=== PATIENT | male | born 1995 | race Caucasian/White ===

== ENCOUNTER 2018-08-20 23:02 | Inpatient (IN) | payer OTHER ==
[~2018-08-20] VITALS: Ht 180.3 cm; Wt 80.7 kg
--- NOTE | 2018-08-20 23:04 | NUR ---
ED Nurse Note: Pt CURTIS from [facility], pt c/o 9/10 pain in L arm s/p open fracture last week with surgical revision. Pt is A&Ox4, VSS
[2018-08-20 23:05] VITALS: BP 120/87
--- NOTE | 2018-08-20 23:07 | NUR ---
ED Nurse Note: Request for PMI from [facility] faxed for ED records from today.
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
--- NOTE | 2018-08-20 23:13 | NUR ---
ED Nurse Note: Xray at bedside
[2018-08-20 23:14] LABS: BASOPHILS % (AUTO) 0.9 % (0.0-2.0); EOSINOPHILS % (AUTO) 1.4 % (0.0-3.0); HEMATOCRIT 44.3 % (42.0-52.0); HEMOGLOBIN 15.7 G/DL (14.2-18.0); LYMPHOCYTES % (AUTO) 29.3 % (20.0-45.0); MEAN CORPUSCULAR VOLUME 90 FL (80-99); MONOCYTES % (AUTO) 7.3 % (1.0-10.0); NEUTROPHILS % (AUTO) 61.1 % (45.0-75.0); PLATELET COUNT 315 K/UL (150-450); RED BLOOD COUNT 4.91 M/UL (4.70-6.10); RED CELL DISTRIBUTION WIDTH 10.5 % (11.6-14.8); WHITE BLOOD COUNT 10.7 K/UL (4.8-10.8)
[2018-08-20] MEDS ORDERED: Morphine Sulfate 4mg/ml Inj (IV USE ONLY) IVP ONE (23:15)
[2018-08-20 23:23] LABS: ANION GAP 6 mmol/L (5-15); BLOOD UREA NITROGEN 14 mg/dL (7-18); CALCIUM 9.4 MG/DL (8.5-10.1); CARBON DIOXIDE 28 MMOL/L (21-32); CHLORIDE 105 MMOL/L (98-107); CREATININE 0.9 MG/DL (0.55-1.30); POTASSIUM 3.9 MMOL/L (3.5-5.1); SODIUM 139 MMOL/L (136-145)
[2018-08-20 23:28] LABS: INR 0.9 (0.9-1.1)
--- NOTE | 2018-08-21 | NUR ---
NURSE NOTES: Received a report from RAY Martinez from ED.
[2018-08-21] MEDS ORDERED: Morphine Sulfate 4mg/ml Inj (IV USE ONLY) IVP ONE (00:15)
--- NOTE | 2018-08-21 00:19 | NUR ---
TRANSFER TO FLOOR: Patient transferred to as ordered, per Dr Dalal. Report given to RAY Burrell. Belongings and medications given to . Family and or S/O informed of transfer.
--- NOTE | 2018-08-21 00:25 | NUR ---
NURSE NOTES: Pt newly admitted from ED via gurney. Pt is awake and alert. Breathing is even and non labored. Noted left hand swelling and gauze wrapped around left forearm serous color discharge. After Morphine 4mg IVP at ED, still noted pain 6/10. Keep left arm elevated with pillow. Left hand sensory 20% by pt's states and clumsy hand bartender noted. Checked belongings and given orientations. Provide admission kits. Leave call light within reach. Bed is locked and lowest. Will continue to monitor. Call Dr. Meraz to confirm admission orders.
[2018-08-21] MEDS ORDERED: Milk of Magnesia 30ml Ud ORAL PRN (02:00)
[2018-08-21] MEDS ORDERED: HYDROcodone/Acetamin 10/325 tab ORAL PRN (02:00)
[2018-08-21] MEDS ORDERED: Vancomycin 1.5gm Premix IVPB ONE (03:00)
[2018-08-21 04:00] VITALS: BP 121/78
[2018-08-21] MEDS: Piperacillin/Tazobactam 3.375 GM in NS 110 ML IVPB SCH ×2 (06:01→14:32)
[2018-08-21 06:40] LABS: ALANINE AMINOTRANSFERASE 58 U/L (12-78); ALBUMIN 3.5 G/DL (3.4-5.0); ALBUMIN/GLOBULIN RATIO 1.1 (1.0-2.7); ALKALINE PHOSPHATASE 68 U/L (46-116); ANION GAP 9 mmol/L (5-15); ASPARTATE AMINO TRANSFERASE 59 U/L (15-37); BLOOD UREA NITROGEN 14 mg/dL (7-18); CALCIUM 9.1 MG/DL (8.5-10.1); CARBON DIOXIDE 30 MMOL/L (21-32); CHLORIDE 100 MMOL/L (98-107); POTASSIUM 3.6 MMOL/L (3.5-5.1); SODIUM 139 MMOL/L (136-145)
[2018-08-21 06:44] LABS: BASOPHILS % (AUTO) 0.7 % (0.0-2.0); EOSINOPHILS % (AUTO) 1.6 % (0.0-3.0); HEMATOCRIT 42.8 % (42.0-52.0); HEMOGLOBIN 15.1 G/DL (14.2-18.0); LYMPHOCYTES % (AUTO) 38.8 % (20.0-45.0); MEAN CORPUSCULAR VOLUME 90 FL (80-99); MONOCYTES % (AUTO) 7.6 % (1.0-10.0); NEUTROPHILS % (AUTO) 51.4 % (45.0-75.0); PLATELET COUNT 287 K/UL (150-450); RED BLOOD COUNT 4.73 M/UL (4.70-6.10); RED CELL DISTRIBUTION WIDTH 10.8 % (11.6-14.8)
--- NOTE | 2018-08-21 07:30 | NUR ---
HAND-OFF: Report given to RAY Mayo. Pt is stable condition. Done round.
[2018-08-21] MEDS ORDERED: Milk of Magnesia 30ml Ud ORAL SCH (07:45)
[2018-08-21] MEDS ORDERED: Magnesium Citrate Liq Btl ORAL PRN ×2 (07:45→14:00)
[2018-08-21] MEDS ORDERED: oxyCODONE 5mg IR tab ORAL PRN (07:45)
[2018-08-21] MEDS ORDERED: Rate Change PCA 1 Each MISC PRN (07:45)
--- NOTE | 2018-08-21 07:45 | NUR ---
NURSE NOTES: Report received from Gho RN. Patient is awake alert and oriented x4, reporting no pain at this time, kerlix dressing around left arm is clean and dry. IV intact and running antibiotic per order. Patient updated on plan of care for the day. Side rails upx2, bed low and locked, call light in reach. Will continue to monitor.
[2018-08-21 08:00] VITALS: BP 112/66
[2018-08-21] MEDS ORDERED: oxyCONTIN 10mg tab ORAL SCH (09:00)
[2018-08-21] MEDS: Docusate 100mg cap ORAL SCH ×2 (09:49→19:12)
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
--- NOTE | 2018-08-21 10:24 | NUR ---
NURSE NOTES: Spoke with Dr. Hernandez. ordered to give mag citrate after lunch if patient has not had BM yet.
[2018-08-21] MEDS: PCA Morphine 30mg/30ml IV PRN (10:54)
[2018-08-21] MEDS: Vancomycin 1gm/D5W 275ml IVPB SCH ×4 (11:17→23:19)
--- NOTE | 2018-08-21 11:23 | Diagnostic Imaging Report ---
APPROVED REPORT CPT Code: 94781 Present Symptoms Comments: Hx of Pain and left leg injury BILATERAL: Imaging reveals a patent deep venous system bilaterally. There is no evidence of thrombus within the common femoral, superficial femoral, popliteal or tibial segments. The greater saphenous veins are within normal limits. Doppler indicates normal spontaneous flow within these segments.
[2018-08-21 12:00] VITALS: BP 110/62
--- NOTE | 2018-08-21 12:40 | Diagnostic Imaging Report ---
Indication: Pain Forearm pain Findings: 2 views of the left forearm were obtained. Patient is at prior fractures of the mid radius and ulna which have been surgically reduced with plates and screws. Alignment and position of hardware appears satisfactory. There is soft tissue swelling along the lateral part of the forearm noted with an apparent open wound. IMPRESSION: Soft tissue swelling open wound noted. Status post recent ORIF.
--- NOTE | 2018-08-21 13:05 | Consultation ---
Consult Note Assessment/Plan Patient seen/evaluated, Left both bone forearm fracture s/p ORIF and fasciotomy for compartment syndrom by Dr. Mitch Ching at [facility]. todays exam reveals continued significant swelling. recommend IV abx and dressing changes. may need wound vac. recommend plastic consult. Possible repeat I&D and would closure if swelling is down. Daily dressing changes and compression with JUAN LUIS wrap. Elevation. Will obtain xrays Gilmer Ellis MD Aug 21, 2018 13:04
--- NOTE | 2018-08-21 13:15 | NUR ---
NURSE NOTES: Dressing changed at bedside by Dr. Ellis.
--- NOTE | 2018-08-21 14:13 | NUR ---
RADIOLOGY: LT. ELBOW & HAND X-RAYS COMPLETED 1400HRS. NF
--- NOTE | 2018-08-21 14:41 | Diagnostic Imaging Report ---
Indication: left hand pain. Comparison: None Findings: 3 views of the left hand were obtained. Normal alignment is demonstrated. No acute fractures, erosions, or periosteal reaction are seen. Soft tissues are unremarkable. Impression: No acute findings.
--- NOTE | 2018-08-21 14:42 | Diagnostic Imaging Report ---
Indication: Elbow pain and swelling Findings: 3 views of the left elbow were obtained. No acute fractures, malalignment, erosions or periostitis are identified. There is generalized subcutaneous edema but no joint effusion identified. Impression: No acute fracture.
[2018-08-21] MEDS ORDERED: Magnesium Citrate Liq Btl ORAL SCH (15:00)
--- NOTE | 2018-08-21 15:11 | NUR ---
CASE MANAGEMENT: INITIAL REVIEW 23 YO M CURTIS FROM HOME CC: OPEN WOUND ON LT ARM PMHx: DENIES SI:COMPARTMENT SYNDROME T 98.6 HR 82 RR 18 B/P 120/87 SATS 100% ON RA GLU 126 IS: MORPHINE IV X1 ZOFRAN IV X1 PATIENT ADMITTED TO MED/SURG 08/20/2018 @ 1330 DCP: PATIENT TO BE DISCHARGED TO HOME ONCE MEDICALLY CLEARED. PLAN OF CARE: ORTHO, ID, PLASTICS CONSULT 08/21/2018 SI:COMPARTMENT SYNDROME T 97.9 HR 79 RR 21 B/P 110/62 SATS 95% ON RA GLU 120 AST 59 IS: ZOSYN IV Q8H PEPCID PO BID MARINOL PO Q12H REDEYE GUNNER PER PARAMETERS VANCO IV Q8H MED/SURG STATUS DCP: PATIENT TO BE DISCHARGED TO HOME ONCE MEDICALLY CLEARED. PLAN OF CARE: POSSIBLE WOUND VAC Addendum: 08/21/18 at 1526 by La Turcios CM INTERQUAL MET
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
[2018-08-21 16:00] VITALS: BP 127/90
[2018-08-21] MEDS: HYDROmorphone 1mg/ml Carpuject SUBQ PRN ×2 (17:39→23:28)
--- NOTE | 2018-08-21 17:45 | NUR ---
NURSE NOTES: Dressing changed for second time at bedside by Dr. Bernstein.
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
[2018-08-21] MEDS ORDERED: PCA shift volume MISC SCH (19:00)
--- NOTE | 2018-08-21 19:00 | NUR ---
HAND-OFF: Report given to Danna BELL. Patient is in stable condition.
[2018-08-21 20:00] VITALS: BP 117/73
[2018-08-21] MEDS ORDERED: Dronabinol 2.5mg Cap ORAL SCH (21:00)
[2018-08-21] MEDS: Cefepime HCl 1 GM in D5W 55 ML IVPB SCH (22:03)
[2018-08-21 23:36] VITALS: BP 119/74
[2018-08-22 04:00] VITALS: BP 113/73
[2018-08-22] MEDS: PCA Morphine 30mg/30ml IV PRN (04:32)
--- NOTE | 2018-08-22 06:38 | NUR ---
NURSE NOTES: spoke to Dr Hernandez, advised pt has tolerated pain since the last dilaudid was administered at 2330. Pt pain level reported at 4/10 on left arm. pt is refusing dilaudid at this time
[2018-08-22] MEDS ORDERED: Fleet's Enema 133ml RECTAL PRN (07:15)
[2018-08-22] MEDS: Vancomycin 1gm/D5W 275ml IVPB SCH ×6 (07:16→22:44)
--- NOTE | 2018-08-22 07:30 | NUR ---
NURSE NOTES: Report received from Danna RN, rounds made. Patient sitting in semi-fowlers position, in bed. No distress on RA. Pain to LFA 6/10. LFA dressing intact. Sling on. Elevated on x3 pillows. CMS to left hand intact, slight wiggle, skin warm, no NT, capillary refill <3 seconds. Scabs to left upper hip/lower back, left knee, left garza, left ankle noted, intact, will apply Silvadene as ordered. Instructed patient on Dr. Hernandez's new orders, verbalized understanding. IVF/antibiotics infusing as ordered, CAKE PUNCHER discontinued, will send syringe down to pharmacy. GF at bedside. Call light in reach, bed in lowest position, will continue to monitor.
--- NOTE | 2018-08-22 07:58 | Infectious Diseases Prog Note ---
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 Will continue to follow along with you. Discussed with RN. Subjective Allergies: Coded Allergies: No Known Allergies (Unverified , 08/20/18) Subjective Afebrile No leukocytosis Objective Vital Signs Last 24 Hour Vital Signs Date Time Temp Pulse Resp B/P (MAP) Pulse Ox O2 Delivery O2 Flow Rate FiO2 08/22/18 07:48 18 08/22/18 05:02 98.1 08/22/18 04:43 18 08/22/18 04:30 18 08/22/18 04:00 99.0 67 16 113/73 (86) 96 08/22/18 00:00 18 08/21/18 23:58 98.1 08/21/18 23:36 98.1 89 19 119/74 (89) 97 08/21/18 21:00 Room Air 08/21/18 20:00 18 08/21/18 20:00 97.9 88 18 117/73 (88) 98 08/21/18 16:00 99.0 78 21 127/90 (102) 99 08/21/18 16:00 21 08/21/18 12:54 18 08/21/18 12:24 18 08/21/18 12:00 97.9 79 21 110/62 (78) 95 08/21/18 11:54 18 08/21/18 11:39 18 08/21/18 11:24 18 08/21/18 11:09 18 08/21/18 10:54 18 08/21/18 09:00 Room Air 08/21/18 08:00 98.4 82 21 112/66 (81) 98 Height (Feet): 5 Height (Inches): 11.00 Weight (Pounds): 180 Objective General appearance: NAD Head: NCAT, MMM, EOMI Lungs: clear to auscultation bilaterally Heart: regular rate and rhythm, S1, S2 Abdomen: soft, non-tender. Bowel sounds normal. Extremities: arm has open wounds Microbiology Date/Time Source Procedure Growth Status 08/21/18 04:35 Rectum Received Laboratory Tests Test 08/22/18 05:00 Vancomycin Level Trough 11.5 ug/mL (5.0-12.0) Current Medications Medications (Trade) Dose Ordered Sig/Diane Route PRN Reason Start Time Stop Time Status Last Admin Dose Admin Acetaminophen/ Hydrocodone Bitart ([place] 10/325) 1 tab Q3H PRN ORAL PAIN 1-5 08/21/18 14:00 08/28/18 13:59 Al Hydroxide/Mg Hydroxide (Mylanta) 30 ml Q6H PRN ORAL GERD/DYSPEPSIA 08/21/18 07:45 09/20/18 07:44 Bisacodyl (Dulcolax) 10 mg ONCE RECTAL 08/22/18 07:15 08/22/18 08:30 Cefepime HCl 1 gm/ Dextrose 55 ml @ 110 mls/hr EVERY 12 HOURS IVPB 08/21/18 21:00 08/28/18 20:59 08/21/18 22:03 Diphenhydramine HCl (Benadryl) 25 mg Q6H PRN ORAL Itching 08/21/18 07:45 09/20/18 07:44 Docusate Sodium (Colace) 100 mg TWICE A DAY ORAL 08/21/18 09:00 09/20/18 08:59 08/21/18 19:12 Dronabinol (Marinol) 2.5 mg Q8H ORAL 08/22/18 13:00 09/21/18 12:59 Famotidine (Pepcid) 20 mg BID ORAL 08/21/18 09:00 09/20/18 08:59 08/21/18 19:12 Hydromorphone HCl (Dilaudid) 1 mg Q6H PRN IVP BREAKTHROUGH PAIN 6-10 08/22/18 07:15 08/29/18 07:14 Magnesium Citrate (Citrate Of Magnesia) 300 ml DAILYPRN PRN ORAL Severe constipation 08/21/18 14:00 09/20/18 13:59 Ondansetron HCl (Zofran) 4 mg Q4H PRN IVP Nausea & Vomiting 08/21/18 07:45 82/19 07:44 08/21/18 23:28 Sennosides (Senokot) 8.6 mg DAILY ORAL 08/23/18 09:00 09/22/18 08:59 Silver Sulfadiazine (Silvadene Cream 25gm) 1 applic TWICE A DAY TOPIC 08/21/18 18:00 09/20/18 17:59 08/21/18 19:12 Sodium Phosphate (Fleet's Sodium Phosl Enema) 133 ml Q12H PRN RECTAL severe constipation 08/22/18 07:15 09/21/18 07:14 Vancomycin HCl (Vanco rx to dose) 1 ea DAILY PRN MISC Per rx protocol 08/21/18 02:00 09/20/18 01:59 Vancomycin HCl 1 gm/Dextrose 275 ml @ 183.708 mls/hr Q8HR IVPB 08/21/18 11:00 08/26/18 10:59 08/22/18 07:16 Raulito Nicolas MD Aug 22, 2018 07:58
[2018-08-22 08:00] VITALS: BP 130/69
[2018-08-22] MEDS: Docusate 100mg cap ORAL SCH ×2 (08:46→18:29)
[2018-08-22] MEDS: Cefepime HCl 1 GM in D5W 55 ML IVPB SCH ×2 (08:47→21:34)
[2018-08-22] MEDS: HYDROmorphone 1mg/ml Carpuject IVP PRN ×3 (08:49→21:42)
--- NOTE | 2018-08-22 09:30 | Progress Note ---
DATE: 08/22/2018 ACUTE PAIN MANAGEMENT PHYSICIAN PROGRESS NOTE MEDICATIONS: Medication administration record reviewed. Medication include Mylanta, Dulcolax, antibiotics, Benadryl, Colace, Marinol, Pepcid, [place], Dilaudid, magnesium citrate, BRIM GREASER OPERATOR morphine, Zofran, and Silvadene cream. LABORATORY STUDIES: From August 21, 2018 shows white count 9, hematocrit 43, and platelets 290. OBJECTIVE: VITAL SIGNS: Within normal limits. Afebrile, pulse 57, respirations 18, oxygen saturation 96% on room air, and blood pressure 113/73. I spent over 60 minutes in consultation. I saw the patient at the bedside. I discussed the case with the nurse RN, Danna. The patient tolerated the Marinol without oversedation. I had started the dosing as q.12 hours. As the patient did tolerate the medication well, I will increase the Marinol to q. 8 hours [id number]. The patient continued to trial the morphine BRIM GREASER OPERATOR overnight. The patient did not believe he was receiving too much benefit. Therefore to encourage movement in and out of bed, I will discontinue the BRIM GREASER OPERATOR and Hep-Lock his IV fluids, since he is adequately drinking fluids for necessary hydration. I will continue the p.r.n. [place] 10 mg every three hours p.r.n. I also have switched the Dilaudid from the subcutaneous route to the intravenous route per the patient's preference. The patient does not appear to be anxious and the patient is in good spirits. I did encourage aggressive ambulation for DVT prophylaxis. The patient remains constipated. He did drink 300 mL bottle of magnesium citrate yesterday at 4 p.m. without results. He also failed milk of magnesia earlier. I have ordered a Dulcolax suppository followed with Fleet Enema p.r.n. I will defer these constipation issues to the attending physician, Dr. Meraz. Once the patient does have a bowel movement, I will start him on Senokot daily to help with further opioid-induced constipation issues. I have left a prescription for [place] for outpatient usage. Once the patient is discharged from the hospital, the patient remains on IV antibiotics. Dr. Gilmer Ellis, evaluated the patient. The Orthopedic consultation is appreciated. Additionally, surgeon Dr. Bernstein, evaluated the patient yesterday evening and made the following assessment plan "left forearm radius ulna open fracture, status post ORIF with subsequent compartment syndrome, status post fasciotomies. The patient with moderate swelling and muscle belly as expected, cannot do delayed primary closure at this time. Recommend application of negative pressure wound VAC to both open wounds to decrease the swelling and stimulate granulation tissue to fill in the defects, then the options would be attempted delayed primary closure versus skin grafting versus continued wound care and eventual secondary closure. I discussed the advantages and disadvantages of each treatment option. For now, we will need to arrange for wound VAC and home health nursing for wound VAC application, need to get the patient wean off of IV pain medication. Once these are done, he can be discharged home from my perspective and will follow up with me at the outpatient Wound [facility] at [facility], where the wound treatment will continue to with conclusion." Raulito Hernandez M.D. DR: LA JOB#: [id number] CC:
--- NOTE | 2018-08-22 11:00 | NUR ---
NURSE NOTES: Dr. Hernandez notified that patient had BM this AM, no suppository given, orders received, see updated orders.
[2018-08-22] MEDS: HYDROcodone/Acetamin 10/325 tab ORAL PRN ×3 (11:38→22:45)
[2018-08-22 12:00] VITALS: BP 126/69
--- NOTE | 2018-08-22 12:45 | NUR ---
NURSE NOTES: LFA dressing changed as ordered by Dr. Ellis, using clean technique. Old dressing removed. Sutures noted to left wrist. Open wounds observed, pink/red moist wound bed, light bleeding. Applied xeroform, 4x4, ABD pads, kerlix, then wrist splint, secured with JUAN LUIS wrap. Elevated on x3 pillows. CMS remains unchanged. Sling on. Will continue to monitor.
[2018-08-22] MEDS: Dronabinol 2.5mg Cap ORAL SCH ×2 (13:12→21:00)
--- NOTE | 2018-08-22 14:59 | NUR ---
CASE MANAGEMENT: REVIEW 08/22/2018 SI:COMPARTMENT SYNDROME T 98 HR 81 RR 20 B/P 130/69 SATS 97% ON RA NO LABS TODAY IS: ZOSYN IV Q8H PEPCID PO BID MARINOL PO Q12H SPOOL WORKER PER PARAMETERS VANCO IV Q8H MED/SURG STATUS DCP: PATIENT TO BE DISCHARGED TO HOME ONCE MEDICALLY CLEARED. PLAN OF CARE: PER MD, "We will need to arrange for wound VAC and home health nursing for wound VAC application."
--- NOTE | 2018-08-22 15:03 | NUR ---
DISCHARGE PLANNING: NOTE LEFT FOR [employer] REGARDING WOUND VAC AND HOME HEALTH. CM WILL F/U IN AM.
[2018-08-22 16:00] VITALS: BP 124/70
[2018-08-22] MEDS: Sennosides 8.6mg tab ORAL SCH (18:29)
--- NOTE | 2018-08-22 18:45 | NUR ---
NURSE NOTES: Followed up with Dr. Bernstein, Dr. Meraz, Renetta Guerrero PA for Dr. Ellis, Dr. Hernandez, and Dr. Nicolas, regarding wound vac placement plans for tomorrow 08/23 and that we do not have a consent order nor a NPO order in preparation for the upcoming procedure. Above MD's have verbalized that they are not performing the procedure tomorrow and do not know which MD is. Will endorse to next shift to follow up with wound RN.
--- NOTE | 2018-08-22 19:50 | NUR ---
HAND-OFF: Report given to Josy BELL. Endorsed that no wound vac placement consent yet, awaiting on MD orders. Still unsure which MD is performing the procedure.
--- NOTE | 2018-08-22 19:50 | NUR ---
NURSE NOTES: Received report from RAY Eaton. Patient alert, oriented, resting in bed. Noted dressing in left forearm intact, sling on. Able to move fingers, cap refill <3 sec. No distress noted. Call light within reach, bed in low position, locked, side rails up x2, will continue to monitor.
[2018-08-22 20:00] VITALS: BP 127/70
[2018-08-22] MEDS ORDERED: NS 275ml ONE (20:59)
[2018-08-22] MEDS ORDERED: NS 500ML ONE (20:59)
[2018-08-22] MEDS ORDERED: Tubing IV Secondary IV ONE (20:59)
[2018-08-23] VITALS: BP 125/71
--- NOTE | 2018-08-23 00:43 | NUR ---
NURSE NOTES: Patient sleeping, respirations unlabored.
[2018-08-23] MEDS: HYDROcodone/Acetamin 10/325 tab ORAL PRN ×5 (01:51→22:14)
--- NOTE | 2018-08-23 01:58 | NUR ---
NURSE NOTES: given pain med, sleeping on and off.
[2018-08-23 04:00] VITALS: BP 109/63
[2018-08-23] MEDS: HYDROmorphone 1mg/ml Carpuject IVP PRN ×3 (04:18→20:53)
--- NOTE | 2018-08-23 04:30 | NUR ---
NURSE NOTES: Left forearm dressing change done after premedicated with Dilaudid IVP. Removed gauze, noted scant blood amount on gauze. Moistened xeroform with saline to remove gently, irrigated wounds thoroughly with saline. Both open wounds (inner and outer forearm) color beefy red, moist, no purulent discharge noted, no active bleeding. Wrist wound closed, with stitches intact. Applied Xeroform to open wounds, followed by 4x4, kerlix and zulema wrap. Also reapplied wrist brace and arm sling. Elevated arm on pillows. Patient tolerated procedure very well.
[2018-08-23] MEDS: Vancomycin 1gm/D5W 275ml IVPB SCH ×6 (05:33→22:14)
[2018-08-23] MEDS: Dronabinol 2.5mg Cap ORAL SCH ×2 (05:34→17:02)
--- NOTE | 2018-08-23 07:30 | NUR ---
NURSE NOTES: HAND-OFF: Report given to RAY Mayo.
[2018-08-23 08:00] VITALS: BP 111/75
--- NOTE | 2018-08-23 08:00 | NUR ---
NURSE NOTES: Received report from Josy BELL. Patient is awake alert and oriented x4, no acute distress noted, patient reporting pain is well managed at this time, not requesting pain medication. Dressing clean, dry, and intact, per report last dressing change done at approximately 0430 this morning. Noted wound vac order, vac to be applied today, will contact wound care nurse. IV intact, asymptomatic. Patient updated on plan of care for the day. Side rails upx2, bed low and locked, call light in reach. Will continue to monitor.
--- NOTE | 2018-08-23 08:16 | Orthopedic Progress Note ---
Orthopedic - Progress Note Subjective Symptoms: other - swelling somewhat better given elevation, dressing changes being done and splint in place. Dr. Bernstein involved and ordered wound VAC to be placed today Objective Last 24 Hour Vital Signs Date Time Temp Pulse Resp B/P (MAP) Pulse Ox O2 Delivery O2 Flow Rate FiO2 08/23/18 04:00 98.1 63 16 109/63 (78) 98 08/23/18 00:00 97.5 74 18 125/71 (89) 99 08/22/18 21:00 Room Air 08/22/18 20:00 98.7 77 16 127/70 (89) 97 08/22/18 16:00 98.4 79 20 124/70 (88) 98 08/22/18 12:00 98.6 77 20 126/69 (88) 97 08/22/18 09:00 Room Air Intake and Output 08/22/18 08/23/18 18:59 06:59 Intake Total 1947 ml 1600 ml Balance 1947 ml 1600 ml Intake Oral 1947 ml 1600 ml # Voids 4 2 # Bowel Movements 2 Wound: other - dressing intact and splint in place. Drains: none Neuro Status: other - still with decreased sensation and weakness, unchanged Additional Comments elbow xray reviewed: no fx Assessment Post-op Diagnosis Left UE both bone forearm fx s/p ORIF with development of compartment syndrome and fasciotomies. wounds open, plastics involved Plan Plan: pain management, continue antibiotics, other - appreciate plastics involvement. wound VAC being placed today. will monitor progress and follow. Continue elevation to reduce swelling. possible I&D/closure on Sunday with the help of plastics- will follow and advise in this regard Renetta Guerrero Aug 23, 2018 08:16
[2018-08-23] MEDS ORDERED: Sennosides 8.6mg tab ORAL SCH (09:00)
[2018-08-23] MEDS: Docusate 100mg cap ORAL SCH ×2 (09:17→18:51)
[2018-08-23] MEDS: Sennosides 8.6mg tab ORAL SCH ×2 (09:17→18:52)
[2018-08-23] MEDS: Cefepime HCl 1 GM in D5W 55 ML IVPB SCH ×2 (09:18→20:54)
--- NOTE | 2018-08-23 11:15 | Progress Note ---
DATE: 08/23/2018 ACUTE PAIN MANAGEMENT MEDICATIONS: Medication administration record reviewed. Medications include antibiotics, Colace, Silvadene cream, Senokot, Pepcid, and Marinol. P.r.n. medications include Zofran, Benadryl, Mylanta, magnesium citrate, [place], and Dilaudid. LABORATORY STUDIES: No interval laboratory studies. OBJECTIVE: VITAL SIGNS: Afebrile, pulse 72, respirations 18, blood pressure 111/75, and oxygen saturation 97% on room air. I spent over 60 minutes in consultation today. I saw the patient at the bedside with the nurse RN, Maria Esther, and the patient's girlfriend, Jose D. The patient did have a large bowel movement yesterday after magnesium citrate. Dulcolax suppository and Fleet enemas were not necessary at this time. Now the patient has had his bowel movement, I will place him on Colace and Senokot b.i.d. to help with bowel regularity while on the opioid narcotics. Additionally, I will continue p.r.n. magnesium citrate as a rescue laxative. The patient will continue on b.i.d. Pepcid for GI ulcer prophylaxis. Mylanta is available for any GERD symptoms. The patient continues on IV antibiotics. Dr. Ellis and Dr. Bernstein, are coordinating application of a wound VAC. I altered the patient's pain regimen yesterday to try to optimize analgesia while reducing the risk for narcotic addiction. I did place the patient on Marinol q. 8 hours. The patient has accepted some of the doses and refusing the doses. So, I will decrease the frequency to q.12 hours [id number] as 6 a.m. and 6 p.m. The patient will continue to take the Marinol if he wishes. I did suggest to the patient that the Marinol may help reduce his opioid requirements. The patient has been ambulating in the hallways with a sling at-times. I have asked the nurse to Hep-Lock his IV fluids to encourage movement in and out of bed for DVT prophylaxis. The patient has been alternating doses of Dilaudid and [place]. The patient's pain levels seemed to be adequately controlled although the anxious girlfriend, Jose D does suggest that the patient is underestimating his pain levels. I had a detailed discussion with the patient and his girlfriend regarding narcotic addiction potential. The patient has been on significant opioid narcotics since his initial arrival at [facility] over a week ago. 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 I did recommend to the patient that if he could handle his pain levels at a manageable level while reducing his Dilaudid usage, he would have the best chances to avoid narcotic addiction. I did recommend that he use the [place] tablets much more frequently and limit his Dilaudid usage for extremely painful events such as dressing changes. The patient and his girlfriend Jose D seem to understand the recommendations. I will continue the [place] 10/325 mg orally every three hours p.r.n. Dilaudid will remain available q. 6 hours p.r.n. for severe breakthrough pain. Doses may need to be altered in the future. Raulito Hernandez M.D. DR: LA JOB#: [id number] CC:
--- NOTE | 2018-08-23 11:15 | Pulmonology Progress Note ---
Assessment/Plan Problems: (1) Compartment syndrome of forearm (2) Radius/ulna fracture Assessment/Plan pain management check electrolytes dvt prophylaxis Subjective ROS Limited/Unobtainable: No Constitutional: Reports: no symptoms HEENT: Repors: no symptoms Cardiovascular: Reports: no symptoms Allergies: Coded Allergies: No Known Allergies (Unverified , 08/20/18) Objective Last 24 Hour Vital Signs Date Time Temp Pulse Resp B/P (MAP) Pulse Ox O2 Delivery O2 Flow Rate FiO2 08/23/18 08:00 97.5 72 18 111/75 (87) 97 08/23/18 04:00 98.1 63 16 109/63 (78) 98 08/23/18 00:00 97.5 74 18 125/71 (89) 99 08/22/18 21:00 Room Air 08/22/18 20:00 98.7 77 16 127/70 (89) 97 08/22/18 16:00 98.4 79 20 124/70 (88) 98 08/22/18 12:00 98.6 77 20 126/69 (88) 97 Intake and Output 08/22/18 08/23/18 18:59 06:59 Intake Total 1947 ml 1600 ml Balance 1947 ml 1600 ml Intake Oral 1947 ml 1600 ml # Voids 4 2 # Bowel Movements 2 General Appearance: WD/WN HEENT: normocephalic, atraumatic Respiratory/Chest: chest wall non-tender, lungs clear Cardiovascular: normal peripheral pulses, normal rate Abdomen: soft, non tender Genitourinary: normal external genitalia Extremities: no cyanosis, no clubbing, other - resting left arm, L fingers are warm and he can move all of them Skin: no lesions Neurologic/Psychiatric: snake 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 Complete 08/21/18 04:35 Rectum VRE Culture - Final NO VANCOMYCIN RESISTANT ENTEROCOCCUS ... Complete Current Medications Medications (Trade) Dose Ordered Sig/Diane Route PRN Reason Start Time Stop Time Status Last Admin Dose Admin Acetaminophen/ Hydrocodone Bitart ([place] 10/325) 1 tab Q3H PRN ORAL PAIN 1-5 08/23/18 11:00 08/30/18 10:59 08/23/18 10:37 Al Hydroxide/Mg Hydroxide (Mylanta) 30 ml Q6H PRN ORAL GERD/DYSPEPSIA 08/21/18 07:45 09/20/18 07:44 Cefepime HCl 1 gm/ Dextrose 55 ml @ 110 mls/hr EVERY 12 HOURS IVPB 08/21/18 21:00 08/28/18 20:59 08/23/18 09:18 Diphenhydramine HCl (Benadryl) 25 mg Q6H PRN ORAL Itching 08/21/18 07:45 09/20/18 07:44 Docusate Sodium (Colace) 100 mg TWICE A DAY ORAL 08/21/18 09:00 09/20/18 08:59 08/23/18 09:17 Dronabinol (Marinol) 2.5 mg Q12H ORAL 08/23/18 18:00 09/22/18 17:59 Famotidine (Pepcid) 20 mg BID ORAL 08/21/18 09:00 09/20/18 08:59 08/23/18 09:17 Hydromorphone HCl (Dilaudid) 1 mg Q6H PRN IVP BREAKTHROUGH PAIN 6-10 08/23/18 13:15 08/30/18 13:14 Magnesium Citrate (Citrate Of Magnesia) 300 ml DAILYPRN PRN ORAL Severe constipation 08/21/18 14:00 09/20/18 13:59 Ondansetron HCl (Zofran) 4 mg Q4H PRN IVP Nausea & Vomiting 08/21/18 07:45 09/20/18 07:44 08/21/18 23:28 Sennosides (Senokot) 8.6 mg TWICE A DAY ORAL 08/22/18 18:00 09/22/18 08:59 08/23/18 09:17 Silver Sulfadiazine (Silvadene Cream 25gm) 1 applic TWICE A DAY TOPIC 08/21/18 18:00 09/20/18 17:59 08/23/18 09:17 Vancomycin HCl (Vanco rx to dose) 1 ea DAILY PRN MISC Per rx protocol 08/21/18 02:00 09/20/18 01:59 Vancomycin HCl 1 gm/Dextrose 275 ml @ 183.708 mls/hr Q8HR IVPB 08/21/18 11:00 08/26/18 10:59 08/23/18 05:33 Thor Raza MD Aug 23, 2018 11:15
--- NOTE | 2018-08-23 11:30 | NUR ---
NURSE NOTES:WOUND CARE NOTES:Pt seen for application of NPWT to surgical wounds dorsal and ventral L forearm. Base of both wounds beefy red .Edges adherent to bases of both wounds and are flat. Moderate amt of serosanguineous exudate noted to old drsg upon removal. Small amt serosanguineous exudate noted from ventral wound. Borders of each wound lined with transparent drape sheets to protect borders of each wound. Granulofoam cut to conform to each wound and covered with transparent drsgs. trac pad placed over each wound and connected with Y- connector of Vac. NPWT resumed as ordered at 125mm/Hg to continuous suction. Pt tolerated procedure well.
--- NOTE | 2018-08-23 11:50 | NUR ---
Patient called at 1030 and stated his girlfriend fell in the bath room CN found patient seating on the floor and and verbalized she is fine CN ask if she fall and injured self? she verbalized "when she stressed out she passed out and and vomit" CN encouraged her to go to ER for further assessment the girlfriend verbalized " this is my normal when I stressed out my boyfriend called me a bitch and that aggravated the situation and I started to vomit and while I was seating I passed out she said" then she started arguing with the patient. nurse informed her it interfere with the patient healing process and disrupts the work flow please calm down if not for the sake of the patient we will ask you to leave. advised as well to leave and to check on patient over the phone as he is stable and no need for the family to room in, not cooperating and CN informed the spring assembler supervisor. and Nurse encouraged the girlfriend to stop arguing crying and causing distraction for other patients on the floor and loved one refused to do so security called and scorted patient out with out no resistance.
--- NOTE | 2018-08-23 11:54 | Infectious Diseases Prog Note ---
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 Will continue to follow along with you. Discussed with RN. Subjective Allergies: Coded Allergies: No Known Allergies (Unverified , 08/20/18) Subjective afebrile no leukocytosis possible I+D and closure on Sunday Objective Vital Signs Last 24 Hour Vital Signs Date Time Temp Pulse Resp B/P (MAP) Pulse Ox O2 Delivery O2 Flow Rate FiO2 08/23/18 08:00 97.5 72 18 111/75 (87) 97 08/23/18 04:00 98.1 63 16 109/63 (78) 98 08/23/18 00:00 97.5 74 18 125/71 (89) 99 08/22/18 21:00 Room Air 08/22/18 20:00 98.7 77 16 127/70 (89) 97 08/22/18 16:00 98.4 79 20 124/70 (88) 98 08/22/18 12:00 98.6 77 20 126/69 (88) 97 Height (Feet): 5 Height (Inches): 11.00 Weight (Pounds): 180 Objective General Appearance: WD/WN HEENT: normocephalic, atraumatic Respiratory/Chest: chest wall non-tender, lungs clear Cardiovascular: normal peripheral pulses, normal rate Abdomen: soft, non tender Genitourinary: normal external genitalia Extremities: no cyanosis, no clubbing, other - resting left arm, L fingers are warm and he can move all of them Skin: no lesions Neurologic/Psychiatric: 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 Complete 08/21/18 04:35 Rectum - Final NO CARBAPENEM-RESISTANT ENTEROBACTERI... Complete 08/21/18 04:35 Rectum VRE Culture - Final NO VANCOMYCIN RESISTANT ENTEROCOCCUS ... Complete Current Medications Medications (Trade) Dose Ordered Sig/Diane Route PRN Reason Start Time Stop Time Status Last Admin Dose Admin Acetaminophen/ Hydrocodone Bitart ([place] 10/325) 1 tab Q3H PRN ORAL PAIN 1-5 08/23/18 11:00 08/30/18 10:59 08/23/18 10:37 Al Hydroxide/Mg Hydroxide (Mylanta) 30 ml Q6H PRN ORAL GERD/DYSPEPSIA 08/21/18 07:45 09/20/18 07:44 Cefepime HCl 1 gm/ Dextrose 55 ml @ 110 mls/hr EVERY 12 HOURS IVPB 08/21/18 21:00 08/28/18 20:59 08/23/18 09:18 Diphenhydramine HCl (Benadryl) 25 mg Q6H PRN ORAL Itching 08/21/18 07:45 09/20/18 07:44 Docusate Sodium (Colace) 100 mg TWICE A DAY ORAL 08/21/18 09:00 09/20/18 08:59 08/23/18 09:17 Dronabinol (Marinol) 2.5 mg Q12H ORAL 08/23/18 18:00 09/22/18 17:59 Famotidine (Pepcid) 20 mg BID ORAL 08/21/18 09:00 09/20/18 08:59 08/23/18 09:17 Hydromorphone HCl (Dilaudid) 1 mg Q6H PRN IVP BREAKTHROUGH PAIN 6-10 08/23/18 13:15 08/30/18 13:14 Magnesium Citrate (Citrate Of Magnesia) 300 ml DAILYPRN PRN ORAL Severe constipation 08/21/18 14:00 09/20/18 13:59 Ondansetron HCl (Zofran) 4 mg Q4H PRN IVP Nausea & Vomiting 08/21/18 07:45 09/20/18 07:44 08/21/18 23:28 Sennosides (Senokot) 8.6 mg TWICE A DAY ORAL 08/22/18 18:00 09/22/18 08:59 08/23/18 09:17 Silver Sulfadiazine (Silvadene Cream 25gm) 1 applic TWICE A DAY TOPIC 08/21/18 18:00 09/20/18 17:59 08/23/18 09:17 Vancomycin HCl (Vanco rx to dose) 1 ea DAILY PRN MISC Per rx protocol 08/21/18 02:00 09/20/18 01:59 Vancomycin HCl 1 gm/Dextrose 275 ml @ 183.708 mls/hr Q8HR IVPB 08/21/18 11:00 08/26/18 10:59 08/23/18 05:33 Chelsey Clay M.D. Aug 23, 2018 11:54
[2018-08-23 12:00] VITALS: BP 125/76
--- NOTE | 2018-08-23 14:39 | NUR ---
NURSE NOTES: Wound vac applied per MD order by wound care nurse to open fasciotomies, wound vac to continuous suction at 125mmHg per order. Patient tolerated application well. No signs of infection noted, no purulent drainage or foul odor noted from wound, wound is bright red in color. Will continue to monitor.
[2018-08-23 16:00] VITALS: BP 118/78
--- NOTE | 2018-08-23 16:01 | NUR ---
[facility] SI:COMPARTMENT SYNDROME OF FOREARM . RADIUS/ULNA FRACTURE VS: BP 109/63, P 72, T 97.5, RR 16, SpO2 97 GLUCOSE 126, AST 59 IS:NORCO 1tab VANCOMYCIN 275ml IVPB DILAUDID 1mg IVP CEFEPIME 55ml IVPB SILVER SULFADIAZINE MARINOL 2.5mg PLAN: POSSIBLE I&D and CLOSURE ON SUNDAY 3E MED/SURG
--- NOTE | 2018-08-23 16:59 | NUR ---
EDUCATION DEPARTMENT CHAIR NOTES LEFT WOUND VAC FORM ON THE CHART FOR DOCTOR TO FILL OUT AND INFORMED THE NURSE TO FAX OUT IF DONE OVER THE WEEKEND TO: [facility] FAX # [phone], PH # [phone]. WILL FOLLOW UP ON SUNDAY.
--- NOTE | 2018-08-23 17:05 | NUR ---
NURSE NOTES: Patient reported that since application of wound vac, pain has significantly increased, patient states pain in left arm is constantly 6-7/10. Called Dr. Hernandez and reported this to MD, Dr. Hernandez ordered to give the scheduled Marinol early and administer [place] when patient can receive it next, MD did not give orders to change pain medications. Called pharmacist David and asked if ok to give scheduled Marinol one hour early, David stated it is ok to give the medication early. Administered medication per order and repositioned patient's arm for comfort. Will continue to monitor.
--- NOTE | 2018-08-23 18:30 | NUR ---
NURSE NOTES: Patient is reporting that pain in left forearm is better. Wound vac is draining well from both wounds.
--- NOTE | 2018-08-23 19:30 | NUR ---
HAND-OFF: Report given to Ashley BELL. Patient is in stable condition.
[2018-08-23 20:30] VITALS: BP 124/86
--- NOTE | 2018-08-23 21:00 | NUR ---
NURSE NOTES: Received a report from RAY Mayo. Done rounds. Left hand swelling persist. Keep elevated with pillow. Wound Vac is on two sites on left forearm and working properly with 125mmHg, moderate and continuous mode. PRN pain medication given as ordered. Leave call light within reach. Will continue to monitor.
[2018-08-24] VITALS: BP 122/78
[2018-08-24 04:57] VITALS: BP 149/79
[2018-08-24] MEDS: Vancomycin 1gm/D5W 275ml IVPB SCH ×6 (06:02→22:17)
[2018-08-24] MEDS: Dronabinol 2.5mg Cap ORAL SCH ×2 (06:02→06:11)
--- NOTE | 2018-08-24 06:02 | Pulmonology Progress Note ---
Assessment/Plan Problems: (1) Compartment syndrome of forearm (2) Radius/ulna fracture Assessment/Plan no new complains pain management check electrolytes dvt prophylaxis Subjective ROS Limited/Unobtainable: No Constitutional: Reports: no symptoms HEENT: Repors: no symptoms Respiratory: Reports: no symptoms Allergies: Coded Allergies: No Known Allergies (Unverified , 08/20/18) Objective Last 24 Hour Vital Signs Date Time Temp Pulse Resp B/P (MAP) Pulse Ox O2 Delivery O2 Flow Rate FiO2 08/24/18 04:57 98.5 71 18 149/79 (102) 97 08/24/18 00:00 98.2 85 18 122/78 (93) 95 08/23/18 21:00 Room Air 08/23/18 20:30 99.0 72 18 124/86 (99) 98 08/23/18 16:00 98.5 89 16 118/78 (91) 98 08/23/18 12:00 97.7 88 16 125/76 (92) 97 08/23/18 09:00 Room Air 08/23/18 08:00 97.5 72 18 111/75 (87) 97 Intake and Output 08/23/18 08/24/18 19:00 07:00 Intake Total 1330.000 ml Output Total 20 ml Balance 1310.000 ml Intake Oral 1000 ml IV Total 330.000 ml Output Drainage Total 20 ml # Voids 3 General Appearance: WD/WN HEENT: normocephalic, atraumatic Respiratory/Chest: chest wall non-tender, lungs clear Cardiovascular: normal peripheral pulses, normal rate Abdomen: normal bowel sounds, soft, non tender Genitourinary: normal external genitalia Extremities: no cyanosis 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, no motor/sensory deficits Current Medications Medications (Trade) Dose Ordered Sig/Diane Route PRN Reason Start Time Stop Time Status Last Admin Dose Admin Acetaminophen/ Hydrocodone Bitart ([place] 10/325) 1 tab Q3H PRN ORAL PAIN 1-5 08/23/18 11:00 08/30/18 10:59 08/23/18 22:14 Al Hydroxide/Mg Hydroxide (Mylanta) 30 ml Q6H PRN ORAL GERD/DYSPEPSIA 08/21/18 07:45 09/20/18 07:44 Cefepime HCl 1 gm/ Dextrose 55 ml @ 110 mls/hr EVERY 12 HOURS IVPB 08/21/18 21:00 08/28/18 20:59 08/23/18 20:54 Diphenhydramine HCl (Benadryl) 25 mg Q6H PRN ORAL Itching 08/21/18 07:45 09/20/18 07:44 Docusate Sodium (Colace) 100 mg TWICE A DAY ORAL 08/21/18 09:00 09/20/18 08:59 08/23/18 18:51 Dronabinol (Marinol) 2.5 mg Q12H ORAL 08/23/18 18:00 09/22/18 17:59 08/23/18 17:02 Famotidine (Pepcid) 20 mg BID ORAL 08/21/18 09:00 09/20/18 08:59 08/23/18 18:51 Hydromorphone HCl (Dilaudid) 1 mg Q6H PRN IVP BREAKTHROUGH PAIN 6-10 08/23/18 13:15 08/30/18 13:14 08/23/18 20:53 Magnesium Citrate (Citrate Of Magnesia) 300 ml DAILYPRN PRN ORAL Severe constipation 08/21/18 14:00 09/20/18 13:59 Ondansetron HCl (Zofran) 4 mg Q4H PRN IVP Nausea & Vomiting 08/21/18 07:45 09/20/18 07:44 08/21/18 23:28 Sennosides (Senokot) 8.6 mg TWICE A DAY ORAL 08/22/18 18:00 09/22/18 08:59 08/23/18 18:52 Silver Sulfadiazine (Silvadene Cream 25gm) 1 applic TWICE A DAY TOPIC 08/21/18 18:00 09/20/18 17:59 08/23/18 18:52 Vancomycin HCl (Vanco rx to dose) 1 ea DAILY PRN MISC Per rx protocol 08/21/18 02:00 09/20/18 01:59 Vancomycin HCl 1 gm/Dextrose 275 ml @ 183.708 mls/hr Q8HR IVPB 08/21/18 11:00 08/26/18 10:59 08/23/18 22:14 Thor Raza MD Aug 24, 2018 06:02
[2018-08-24] MEDS: HYDROmorphone 1mg/ml Carpuject IVP PRN ×4 (06:16→23:11)
--- NOTE | 2018-08-24 07:10 | NUR ---
NURSE NOTES: Report received from Ashley BELL, rounds made. Patient sitting at bedside, alert, oriented x4, calm, GF present. No distress or SOB on RA. Eating breakfast, no nausea. IV antibiotic (Vancomycin) infusing to right hand as ordered, site asymptomatic. Wound vac in place (serosanguineous drainage noted in canister) to left arm, dressing CDI, sling in place. Pain 5/10 to left arm. Reinforced patient to remain on unit when ambulating the halls. Call light in reach, bed in lowest position, will continue to monitor.
--- NOTE | 2018-08-24 07:29 | NUR ---
HAND-OFF: Report given to RAY Eaton.
--- NOTE | 2018-08-24 07:40 | NUR ---
NURSE NOTES: Spoke to Dr. Hernandez regarding pt's complaint of pain management regimen not helping with his pain; no new orders given besides administering [place] 10/325 mg now. Endorsed to morning shift RNUma.
[2018-08-24] MEDS: HYDROcodone/Acetamin 10/325 tab ORAL PRN ×4 (07:48→20:40)
--- NOTE | 2018-08-24 07:50 | NUR ---
NURSE NOTES: Medicated patient with [place] 10 mg for pain 6/10 to left arm, offered ice compression, patient refused. BOUCHRA repositioned/elevated on x3 pillows. Encouraged hydration and ambulation to promote BM with scheduled stool softeners, verbalized understanding. Will reassess pain.
[2018-08-24 08:00] VITALS: BP 141/80
[2018-08-24] MEDS: Cefepime HCl 1 GM in D5W 55 ML IVPB SCH ×2 (08:59→20:48)
[2018-08-24] MEDS: Docusate 100mg cap ORAL SCH ×2 (08:59→18:52)
[2018-08-24] MEDS: Sennosides 8.6mg tab ORAL SCH ×2 (08:59→18:52)
--- NOTE | 2018-08-24 11:44 | Infectious Diseases Prog Note ---
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 Plan: -Continue prophylatic IV Vancomycin #4 and Cefepime #4 (to avoid nephrotoxicity ) while open wounds ( may DC AB Rx soon ) -f/u cx -Monitor CBC/CMP, temperatures -wound care -ortho and plastic sx f/u Subjective Constitutional: Denies: no symptoms, fever, chills, fatigue, anorexia, drenching sweats, other Allergies: Coded Allergies: No Known Allergies (Unverified , 08/20/18) Objective Vital Signs Last 24 Hour Vital Signs Date Time Temp Pulse Resp B/P (MAP) Pulse Ox O2 Delivery O2 Flow Rate FiO2 08/24/18 08:00 97.9 77 19 141/80 (100) 97 08/24/18 04:57 98.5 71 18 149/79 (102) 97 08/24/18 00:00 98.2 85 18 122/78 (93) 95 08/23/18 21:00 Room Air 08/23/18 20:30 99.0 72 18 124/86 (99) 98 08/23/18 16:00 98.5 89 16 118/78 (91) 98 08/23/18 12:00 97.7 88 16 125/76 (92) 97 Height (Feet): 5 Height (Inches): 11.00 Weight (Pounds): 180 HEENT: atraumatic Respiratory/Chest: no respiratory distress Cardiovascular: normal rate Abdomen: soft, non tender Current Medications Medications (Trade) Dose Ordered Sig/Diane Route PRN Reason Start Time Stop Time Status Last Admin Dose Admin Acetaminophen/ Hydrocodone Bitart ([place] 10/325) 1 tab Q3H PRN ORAL PAIN 1-5 08/23/18 11:00 08/30/18 10:59 08/24/18 11:04 Al Hydroxide/Mg Hydroxide (Mylanta) 30 ml Q6H PRN ORAL GERD/DYSPEPSIA 08/21/18 07:45 09/20/18 07:44 Cefepime HCl 1 gm/ Dextrose 55 ml @ 110 mls/hr EVERY 12 HOURS IVPB 08/21/18 21:00 08/28/18 20:59 08/24/18 08:59 Diphenhydramine HCl (Benadryl) 25 mg Q6H PRN ORAL Itching 08/21/18 07:45 09/20/18 07:44 Docusate Sodium (Colace) 100 mg TWICE A DAY ORAL 08/21/18 09:00 09/20/18 08:59 08/24/18 08:59 Dronabinol (Marinol) 2.5 mg Q12H ORAL 08/23/18 18:00 09/22/18 17:59 08/24/18 06:02 Famotidine (Pepcid) 20 mg BID ORAL 08/21/18 09:00 09/20/18 08:59 08/24/18 08:59 Hydromorphone HCl (Dilaudid) 1 mg Q6H PRN IVP BREAKTHROUGH PAIN 6-10 08/23/18 13:15 08/30/18 13:14 08/24/18 06:16 Magnesium Citrate (Citrate Of Magnesia) 300 ml DAILYPRN PRN ORAL Severe constipation 08/21/18 14:00 09/20/18 13:59 Ondansetron HCl (Zofran) 4 mg Q4H PRN IVP Nausea & Vomiting 08/21/18 07:45 09/20/18 07:44 08/21/18 23:28 Sennosides (Senokot) 8.6 mg TWICE A DAY ORAL 08/22/18 18:00 09/22/18 08:59 08/24/18 08:59 Silver Sulfadiazine (Silvadene Cream 25gm) 1 applic TWICE A DAY TOPIC 08/21/18 18:00 09/20/18 17:59 08/24/18 08:59 Vancomycin HCl (Vanco rx to dose) 1 ea DAILY PRN MISC Per rx protocol 08/21/18 02:00 09/20/18 01:59 Vancomycin HCl 1 gm/Dextrose 275 ml @ 183.708 mls/hr Q8HR IVPB 08/21/18 11:00 08/26/18 10:59 08/24/18 06:02 Carlo Bautista MD Aug 24, 2018 11:44
[2018-08-24 12:00] VITALS: BP 126/80
[2018-08-24 15:58] VITALS: BP 121/75
[2018-08-24] MEDS ORDERED: Tubing IV Secondary IV ONE (16:03)
[2018-08-24] MEDS ORDERED: NS 500ML ONE (16:03)
--- NOTE | 2018-08-24 18:28 | NUR ---
CASE MANAGEMENT: REVIEW SI: S/P ORIF LEFT ARM COMPARTMENT SYNDROME T 97.9 HR 77 RR 18 BP 149/79 SAT 97% ROOM AIR IS: MARINOL PO Q12HR NOR[place] 10/325 PO Q3HR PRN CEFEPIME IV Q12HR SILVADENE TOPICAL BID VANCO IV Q8HR MED/SURG STATUS DCP: PATIENT IS FROM HOME
--- NOTE | 2018-08-24 18:40 | NUR ---
NURSE NOTES: Spoke to Dr. Hernandez regarding patient current status, that patient is stating his pain medication is not effective/does not last long enough (Dilaudid lasts 2.5 hours and [place] takes 45 minutes to start working then lasts 1.5 hours) and would like it scheduled not as needed. Dr. Hernandez instructed to offer patient his scheduled Marinol and see what he would like changed with his pain medications and if he would like the Dilaudid frequency increased, to check with Dr. Raza for further orders. RN offered scheduled Marinol (1800 dose is not on the eMAR for 08/24, pharmacy was notified of this), patient refused the Marinol. Patient states he would like his Dilaudid frequency closer, notified Dr. Raza, orders received for Dilaudid 1 mg IV every 4 hours PRN pain. Patient notified of updated orders, verbalized understanding, will medicate.
--- NOTE | 2018-08-24 19:35 | NUR ---
HAND-OFF: Report given to Raymundo WEBSTER. Endorsed updated Dilaudid order. Wound Vac output: 90 ml
--- NOTE | 2018-08-24 19:36 | NUR ---
NURSE NOTES: Received shift report from RAY Eaton
--- NOTE | 2018-08-24 19:38 | NUR ---
NURSE NOTES: Seen pt in my initial rounding. Pt is resting in bed comfortably, AAOX4. pain is minimal now after pt received Dilaudid earlier by RAY Eaton. wound VAC drsg and splint intact, clean and dry. VS taken, stable. call light w/in reach.
[2018-08-24 20:00] VITALS: BP 148/81
[2018-08-25] VITALS: BP 121/69
[2018-08-25] MEDS: HYDROcodone/Acetamin 10/325 tab ORAL PRN ×6 (00:52→22:46)
--- NOTE | 2018-08-25 01:15 | NUR ---
NURSE NOTES: Pt is resting in bed, pain is easing up now after Dilaudid given earlier. no apparent c/o noted at this time, VSS. girlfriend at bedside.
[2018-08-25 04:00] VITALS: BP 134/74
[2018-08-25] MEDS: Dronabinol 2.5mg Cap ORAL SCH ×3 (06:00→20:29)
[2018-08-25] MEDS: Vancomycin 1gm/D5W 275ml IVPB SCH ×6 (06:22→22:00)
--- NOTE | 2018-08-25 07:20 | NUR ---
NURSE NOTES: Report received from Raymundo WEBSTER, rounds made. Patient sleeping with LUE elevated on x3 pillows. No distress on RA. Wound vac patent, serosanguineous output noted. Left fingers warm. GF at bedside. Will follow up with pharmacy regarding when next Vancomycin trough will be. Call light in reach, bed in lowest position, will continue to monitor.
--- NOTE | 2018-08-25 07:22 | NUR ---
HAND-OFF: Report given to RAY Eaton.
--- NOTE | 2018-08-25 07:43 | Pulmonology Progress Note ---
Assessment/Plan Problems: (1) Compartment syndrome of forearm (2) Radius/ulna fracture Assessment/Plan pain is better controlled no new complains pain management check electrolytes dvt prophylaxis Subjective ROS Limited/Unobtainable: No Constitutional: Reports: no symptoms HEENT: Repors: no symptoms Allergies: Coded Allergies: No Known Allergies (Unverified , 08/20/18) Objective Last 24 Hour Vital Signs Date Time Temp Pulse Resp B/P (MAP) Pulse Ox O2 Delivery O2 Flow Rate FiO2 08/25/18 04:00 98.0 52 16 134/74 (94) 97 08/25/18 00:00 98.3 67 16 121/69 (86) 95 08/24/18 23:41 99.0 08/24/18 21:00 Room Air 08/24/18 20:00 99.0 78 18 148/81 (103) 96 08/24/18 15:58 98.0 74 19 121/75 (90) 100 08/24/18 12:00 98.2 75 18 126/80 (95) 96 08/24/18 09:00 Room Air 08/24/18 08:00 97.9 77 19 141/80 (100) 97 Intake and Output 08/24/18 08/25/18 19:00 07:00 Intake Total 1306 ml 867.416 ml Output Total 90 ml 120 ml Balance 1216 ml 747.416 ml Intake Oral 1306 ml 500 ml IV Total 367.416 ml Output Drainage Total 90 ml 120 ml # Voids 4 3 Objective General Appearance: WD/WN HEENT: normocephalic Respiratory/Chest: chest wall non-tender, normal breath sounds Cardiovascular: normal peripheral pulses, normal rate Abdomen: normal bowel sounds, soft, non tender Genitourinary: normal external genitalia Extremities: no cyanosis, moves fingers in left hand, clean dressing Skin: no lesions Current Medications Medications (Trade) Dose Ordered Sig/Diane Route PRN Reason Start Time Stop Time Status Last Admin Dose Admin Acetaminophen/ Hydrocodone Bitart ([place] 10/325) 1 tab Q3H PRN ORAL PAIN 1-5 08/23/18 11:00 08/30/18 10:59 08/25/18 05:38 Al Hydroxide/Mg Hydroxide (Mylanta) 30 ml Q6H PRN ORAL GERD/DYSPEPSIA 08/21/18 07:45 09/20/18 07:44 Cefepime HCl 1 gm/ Dextrose 55 ml @ 110 mls/hr EVERY 12 HOURS IVPB 08/21/18 21:00 08/28/18 20:59 08/24/18 20:48 Diphenhydramine HCl (Benadryl) 25 mg Q6H PRN ORAL Itching 08/21/18 07:45 09/20/18 07:44 Docusate Sodium (Colace) 100 mg TWICE A DAY ORAL 08/21/18 09:00 09/20/18 08:59 08/24/18 18:52 Dronabinol (Marinol) 2.5 mg Q12H ORAL 08/23/18 18:00 09/22/18 17:59 08/24/18 06:02 Famotidine (Pepcid) 20 mg BID ORAL 08/21/18 09:00 09/20/18 08:59 08/24/18 18:52 Hydromorphone HCl (Dilaudid) 1 mg Q4H PRN IVP BREAKTHROUGH PAIN 6-10 08/24/18 18:30 08/31/18 18:29 08/24/18 23:11 Magnesium Citrate (Citrate Of Magnesia) 300 ml DAILYPRN PRN ORAL Severe constipation 08/21/18 14:00 09/20/18 13:59 Ondansetron HCl (Zofran) 4 mg Q4H PRN IVP Nausea & Vomiting 08/21/18 07:45 09/20/18 07:44 08/21/18 23:28 Sennosides (Senokot) 8.6 mg TWICE A DAY ORAL 08/22/18 18:00 09/22/18 08:59 08/24/18 18:52 Silver Sulfadiazine (Silvadene Cream 25gm) 1 applic TWICE A DAY TOPIC 08/21/18 18:00 09/20/18 17:59 08/24/18 18:52 Vancomycin HCl (Vanco rx to dose) 1 ea DAILY PRN MISC Per rx protocol 08/21/18 02:00 09/20/18 01:59 Vancomycin HCl 1 gm/Dextrose 275 ml @ 183.708 mls/hr Q8HR IVPB 08/21/18 11:00 08/26/18 10:59 08/25/18 06:22 Thor Raza MD 7, 2019 07:43
[2018-08-25 08:10] LABS: BASOPHILS % (AUTO) 0.9 % (0.0-2.0); EOSINOPHILS % (AUTO) 1.9 % (0.0-3.0); HEMATOCRIT 40.3 % (42.0-52.0); HEMOGLOBIN 13.8 G/DL (14.2-18.0); MEAN CORPUSCULAR VOLUME 93 FL (80-99); MONOCYTES % (AUTO) 10.3 % (1.0-10.0); PLATELET COUNT 286 K/UL (150-450); RED BLOOD COUNT 4.36 M/UL (4.70-6.10); RED CELL DISTRIBUTION WIDTH 10.9 % (11.6-14.8); WHITE BLOOD COUNT 6.8 K/UL (4.8-10.8)
[2018-08-25] MEDS: HYDROmorphone 1mg/ml Carpuject IVP PRN ×4 (08:37→21:33)
[2018-08-25 08:38] VITALS: BP 123/79
[2018-08-25] MEDS: Docusate 100mg cap ORAL SCH ×2 (08:38→17:35)
[2018-08-25] MEDS: Cefepime HCl 1 GM in D5W 55 ML IVPB SCH ×2 (08:38→21:34)
[2018-08-25] MEDS: Sennosides 8.6mg tab ORAL SCH ×2 (08:38→17:35)
[2018-08-25 09:44] LABS: ALANINE AMINOTRANSFERASE 68 U/L (12-78); ALBUMIN 3.1 G/DL (3.4-5.0); ALBUMIN/GLOBULIN RATIO 0.9 (1.0-2.7); ALKALINE PHOSPHATASE 78 U/L (46-116); ANION GAP 11 mmol/L (5-15); ASPARTATE AMINO TRANSFERASE 34 U/L (15-37); BILIRUBIN,TOTAL 0.7 MG/DL (0.2-1.0); BLOOD UREA NITROGEN 15 mg/dL (7-18); CALCIUM 9.1 MG/DL (8.5-10.1); CARBON DIOXIDE 26 MMOL/L (21-32); CHLORIDE 105 MMOL/L (98-107); SODIUM 142 MMOL/L (136-145)
--- NOTE | 2018-08-25 11:40 | NUR ---
NURSE NOTES: Instructed patient to keep LUE elevated on x3 pillows and left hand supported to maintain alignment while in bed. Patient ambulating in halls wearing sling, wound vac remains intact. LUE dressing remains CDI. Will continue to monitor.
[2018-08-25 12:00] VITALS: BP 126/76
--- NOTE | 2018-08-25 13:17 | NUR ---
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 RADIUS/ULNA FRACTURE VS: BP 134/74, P 52, T 97.4, RR 20, SpO2 95 RBC 4.36, H&H 13.8/40.3 IS:MARINOL 2.5mg VANCOMYCIN 275mlS IVPB CEFEPIME 55mls IVPB SILVER SULFADIAZINE TOPICAL DILAUDID 1mg IVP [place] 10/325 1tab PLAN: PAIN MANAGEMENT CHECK ELECTROLYTES 3E MED/SURG STATUS
[2018-08-25 16:16] VITALS: BP 137/77
--- NOTE | 2018-08-25 19:50 | NUR ---
HAND-OFF: Report given to Edilson BELL. Addendum: 08/25/18 at 2001 by Uma Carrera RN Wound Vac Output: 50 ml
[2018-08-25 20:00] VITALS: BP 124/82
[2018-08-26] VITALS (7 sets, daily range): BP systolic 115–134; BP diastolic 70–79
[2018-08-26] MEDS: HYDROmorphone 1mg/ml Carpuject IVP PRN ×6 (02:05→23:27)
[2018-08-26] MEDS: Vancomycin 1gm/D5W 275ml IVPB SCH ×4 (06:03→18:24)
--- NOTE | 2018-08-26 07:04 | NUR ---
HAND-OFF: Report given to Report jaret bonilla RN.
--- NOTE | 2018-08-26 07:27 | NUR ---
NURSE NOTES: Received report from RAY Waggoner. Rounding done with outgoing nurse. Patient is asleep. No respiratory distress noted. Girl friend is at bedside. Bed in lowest position, call light within reach. Will continue to monitor.
[2018-08-26] MEDS: Sennosides 8.6mg tab ORAL SCH ×2 (08:44→17:52)
[2018-08-26] MEDS: Docusate 100mg cap ORAL SCH ×2 (08:44→17:52)
[2018-08-26] MEDS: HYDROcodone/Acetamin 10/325 tab ORAL PRN ×4 (08:45→20:23)
[2018-08-26] MEDS: Cefepime HCl 1 GM in D5W 55 ML IVPB SCH ×2 (08:46→20:24)
--- NOTE | 2018-08-26 08:46 | Orthopedic Progress Note ---
Orthopedic - Progress Note Subjective Additional Comments continued with left arm pain. Swelling decreasing. Wound vac in place. Objective Last 24 Hour Vital Signs Date Time Temp Pulse Resp B/P (MAP) Pulse Ox O2 Delivery O2 Flow Rate FiO2 08/26/18 08:00 98.3 69 18 125/71 (89) 99 08/26/18 04:00 98.2 64 12 123/74 (90) 08/26/18 00:00 98.6 86 115/74 (88) 08/25/18 20:00 Room Air 08/25/18 20:00 98.3 20 124/82 (96) 98 08/25/18 16:16 98.7 84 22 137/77 (97) 98 08/25/18 12:00 97.4 71 18 126/76 (93) 98 08/25/18 09:00 Room Air Intake and Output 08/25/18 08/26/18 19:00 07:00 Intake Total 1274 ml 1255 ml Output Total 50 ml 100 ml Balance 1224 ml 1155 ml Intake Oral 1274 ml 1200 ml IV Total 55 ml Output Drainage Total 50 ml 100 ml # Voids 3 11 Wound: clean, intact Drains: hemovac Additional Comments neuro status unchanged. Plan Additional Comments Discussed with Dr. Bernstein regarding coordinating care for this patients wounds. Dr. Bernstein plans on taking patient to the OR possibly on Sunday for delayed closure vs skin grafting. He will manage the wound. Patient needs close ortho follow up with me within a week to assess fracture status and fixation. Gilmer Penaloza MD Aug 26, 2018 08:46
--- NOTE | 2018-08-26 11:30 | NUR ---
NURSE NOTES:WOUND CARE FOLLOW-UP NOTES:NPWT L forearm changed today wounds ventral and dorsal L forearm.(L)500ml serosanguineous exudate noted in canister of Vac. L ventral forearm wound measures (L)13cm x (W)7.5cm. Base of wound beefy red .Edges flat and adherent to base of wound. Wound dorsal L forearm(L)11.5cm x (W)4.5cm.Edges flat and adherent to base of wound. Small amt of sanguineous exudate noted from ventral wound post cleansing with Saline.L forearm less swollen as compared to initial assessment on placement of NPWT. Both wounds cleansed with Saline. Cavilon Skin Barrier applied around perimeter of each wound. Transparent drape sheets applied along perimeter of each wound. Granulofoam cut to conform to size of each wound then covered with Transparent drape sheets. Trac pads placed over each wound and connected via Y-connector .NPWT resumed as ordered at 125mm/Hg to continuous suction. ABD pd placed under both tubings of VAc and L forearm wrapped loosely with kelrix and secured loosely with zulema wrap. Pt tolerated procedure but complained of having nerve pain when NPWT initially resumed. Pain issues addressed by primary nurse.
--- NOTE | 2018-08-26 12:14 | NUR ---
NURSE NOTES: Patient stat Dilaudid 1 mg is not working also mentioned pt did not see Dr. Hernandez for [address] Hernandez and left the message.
--- NOTE | 2018-08-26 12:20 | NUR ---
NURSE NOTES: Dr. Hernandez called and ordered. Lyrica 25mg TID schedule. Noted and carried out.
[2018-08-26] MEDS: Lyrica 25mg cap ORAL SCH ×2 (12:43→17:52)
--- NOTE | 2018-08-26 12:56 | NUR ---
NURSE NOTES: Patient wants to know what time Dr. Hernandez is coming. Dr. Hernandez said he will come late tonight. Informed patient and verbalized understanding.
--- NOTE | 2018-08-26 13:36 | NUR ---
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 RADIUS/ULNA FRACTURE VS: BP 129/70, P 64, T 98.8, RR 20, SpO2 98 IS:NORCO 10325 1tab DILAUDID 1mg IVP SILVER SULFADIAZINE CEFEPIME 55ml VANCOMYCIN 275ml PLAN: TAKE PT OR FOR DELAYED CLOSURE VS SKIN GRAFTING 3E MED/SURG STATUS
--- NOTE | 2018-08-26 15:10 | Infectious Diseases Prog Note ---
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 Plan: -Continue prophylatic IV Vancomycin #6 and Cefepime #6 (to avoid nephrotoxicity ) while open wounds ( may DC AB Rx soon ) -f/u cx -Monitor CBC/CMP, temperatures -wound care -ortho and plastic sx f/u: delayed closure vs skin grafting on Monday 08/28 Subjective Allergies: Coded Allergies: No Known Allergies (Unverified , 08/20/18) Subjective afebrile no leukocytosis Objective Vital Signs Last 24 Hour Vital Signs Date Time Temp Pulse Resp B/P (MAP) Pulse Ox O2 Delivery O2 Flow Rate FiO2 08/26/18 12:00 98.8 84 18 129/70 (89) 99 08/26/18 09:00 Room Air 08/26/18 08:00 98.3 69 18 125/71 (89) 99 08/26/18 04:00 98.2 64 12 123/74 (90) 08/26/18 00:00 98.6 86 115/74 (88) 08/25/18 20:00 Room Air 08/25/18 20:00 98.3 20 124/82 (96) 98 08/25/18 16:16 98.7 84 22 137/77 (97) 98 Height (Feet): 5 Height (Inches): 11.00 Weight (Pounds): 180 Objective General Appearance: WD/WN HEENT: normocephalic, atraumatic Respiratory/Chest: chest wall non-tender, lungs clear Cardiovascular: normal peripheral pulses, normal rate Abdomen: soft, non tender Genitourinary: normal external genitalia Extremities: no cyanosis, no clubbing, other - resting left arm, L fingers are warm and he can move all of them Skin: no lesions 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 Current Medications Medications (Trade) Dose Ordered Sig/Diane Route PRN Reason Start Time Stop Time Status Last Admin Dose Admin Acetaminophen/ Hydrocodone Bitart ([place] 10/325) 1 tab Q3H PRN ORAL PAIN 1-5 08/23/18 11:00 08/30/18 10:59 08/26/18 12:06 Al Hydroxide/Mg Hydroxide (Mylanta) 30 ml Q6H PRN ORAL GERD/DYSPEPSIA 08/21/18 07:45 09/20/18 07:44 Cefepime HCl 1 gm/ Dextrose 55 ml @ 110 mls/hr EVERY 12 HOURS IVPB 08/21/18 21:00 08/28/18 20:59 08/26/18 08:46 Diphenhydramine HCl (Benadryl) 25 mg Q6H PRN ORAL Itching 08/21/18 07:45 09/20/18 07:44 Docusate Sodium (Colace) 100 mg TWICE A DAY ORAL 08/21/18 09:00 09/20/18 08:59 08/26/18 08:44 Dronabinol (Marinol) 2.5 mg Q12H ORAL 08/23/18 18:00 09/22/18 17:59 08/25/18 20:29 Famotidine (Pepcid) 20 mg BID ORAL 08/21/18 09:00 09/20/18 08:59 08/26/18 08:44 Hydromorphone HCl (Dilaudid) 1 mg Q4H PRN IVP BREAKTHROUGH PAIN 6-10 08/24/18 18:30 08/31/18 18:29 08/26/18 14:18 Magnesium Citrate (Citrate Of Magnesia) 300 ml DAILYPRN PRN ORAL Severe constipation 08/21/18 14:00 09/20/18 13:59 Ondansetron HCl (Zofran) 4 mg Q4H PRN IVP Nausea & Vomiting 08/21/18 07:45 09/20/18 07:44 08/21/18 23:28 Pregabalin (Lyrica) 25 mg THREE TIMES A DAY ORAL 08/26/18 13:00 09/25/18 12:59 08/26/18 12:43 Sennosides (Senokot) 8.6 mg TWICE A DAY ORAL 08/22/18 18:00 09/22/18 08:59 08/26/18 08:44 Silver Sulfadiazine (Silvadene Cream 25gm) 1 applic TWICE A DAY TOPIC 08/21/18 18:00 09/20/18 17:59 08/26/18 09:53 Vancomycin HCl (Vanco rx to dose) 1 ea DAILY PRN MISC Per rx protocol 08/21/18 02:00 09/20/18 01:59 Chelsey Clay M.D. Aug 26, 2018 15:09
--- NOTE | 2018-08-26 16:37 | NUR ---
NURSE NOTES: Dr. Bernstein ordered take wound vac out at 0600 am on Sunday and put wet to dry dressing and NPO Sunday midnight. Noted and carried out.
[2018-08-26] MEDS: Dronabinol 2.5mg Cap ORAL SCH (18:58)
--- NOTE | 2018-08-26 19:50 | NUR ---
HAND-OFF: Report given to RAY Somers.
--- NOTE | 2018-08-26 19:55 | NUR ---
NURSE NOTES: Received a report from Ellen Gibson RN. Pt is in stable condition. AAOX4. Able to make needs known. Girlfriend at the bedside. On room air. C/o L FA pain, rated it 5/10. Will give pain med once it's due. Wound vac is on the L FA, is draining. IV site is patent and intact. Bed in lowest position. Call light within reach. Will continue to monitor.
[2018-08-26] MEDS ORDERED: HYDROmorphone 1mg/ml Carpuject IVP PRN (21:14)
[2018-08-26] MEDS: oxyCONTIN 10mg tab ORAL SCH (21:38)
--- NOTE | 2018-08-26 22:15 | NUR ---
NURSE NOTES: Pt is seen ambulating in the hallway and accompanied by his girlfriend.
--- NOTE | 2018-08-26 22:30 | Progress Note ---
DATE: 08/26/2018 ACUTE PAIN MANAGEMENT PHYSICIAN PROGRESS NOTE MEDICATIONS: Medication administration record reviewed. Medications include Mylanta, Benadryl, Colace, Marinol, Pepcid, Prozac, Ollie, Dilaudid, magnesium citrate, Zofran, Senokot, Silvadene cream, vancomycin. LABORATORY STUDIES: From yesterday's 08/25/2018 shows white count 7, hematocrit 40, platelets 286. Sodium 142, potassium 4.0, chloride 105, bicarb 26, BUN 15, creatinine 1.0, glucose 104. Calcium 9.1, phosphorus 4.0, magnesium 1.9. Total bilirubin 0.7, AST 34, ALT 68, alkaline phosphatase 78. Total protein 6.6, albumin 3.1. VITAL SIGNS: Afebrile, pulse 76, respirations 17, blood pressure 126/79, oxygen saturation 96% on room air. I spent over 60 minutes in consultation today with multiple discussions with the nursing staff. I spent extensive time at the bedside with the patient and his girlfriend, Jose D. After application of the wound VAC to his left forearm, the patient states that his pain levels have increased. He also has complained of increased shooting pains in his arm. He has been relatively nonfunctional, getting out of bed only for about 15 minutes each day. The patient states that his left arm pain is severe, constantly, rating his pain at least a 7/10 on the visual analog pain scale. The patient describes his pain well, as he only seem to be in pleasant spirits even during painful dressing changes. I interviewed the patient extensively and repeatedly asked if his pain levels were tolerable. At this point, the patient states that his pain levels have not been tolerable. Despite his increased and infrequent usage of p.r.n. Ollie 10 mg at least 4 or 5 times per day, with nearly regular request for IV Dilaudid 1 mg, nearly around the clock for the past 48 hours. Once again, I had a very detailed discussion with the patient regarding the considerable risk for opioid addiction with his increased and continual requesting for potent opioid narcotics. I explained significant risk for increasing the dosage, frequency, and adding other narcotic agents. The patient stated that he agreed to and understood the risks. Nevertheless, the patient requested repeatedly to increase his pain medication. All this discussion was witnessing in front of his girlfriend, Jose D. During earlier visits, a similar discussion was witnessed by the charge nurse, RAY Narayan. With the patient understanding for the considerable and increased risk for opioid addiction, but with his continued request for more pain medication, I will trial him on OxyContin controlled release 10 mg this evening. We will see how he tolerates this medication in the hopes that it will help reduce his requests for p.r.n. medications, especially the IV Dilaudid. I will continue the breakthrough Ollie at a 10 mg dose 1 tablet q.3 hours p.r.n. I added Lyrica 25 mg 3 times a day, which perhaps may help with his shooting left forearm nerve pains. I also explained the patient that addition of a mood stabilizing agent in a patient who has been taking high dose opioids for nearly 10 days, might improve some benefit. In hopes of selecting a mood stabilizing agent, which may be less pricey from an outpatient pharmacy, I have selected 10 mg oral Prozac, which I will start tomorrow morning. If this is tolerated without side effects, this dose will be increased. The patient is agreeable with the plan and he standards that doses will be adjusted p.r.n. Raulito Hernandez M.D. DR: JUAN A JOB#: [id number] CC:
--- NOTE | 2018-08-26 22:42 | General Progress Note ---
Assessment/Plan Status Narrative s/p forarm fracture s/p compartmetn syndrome open wound on antiboitc check perop labs to have surgery on sunday Subjective Date patient seen: Aug 26, 2018 Time patient seen: 22:41 Allergies: Coded Allergies: No Known Allergies (Unverified , 08/20/18) Subjective has pain walking no fever nochills Objective Last 24 Hour Vital Signs Date Time Temp Pulse Resp B/P (MAP) Pulse Ox O2 Delivery O2 Flow Rate FiO2 08/26/18 21:00 Room Air 08/26/18 20:00 98.8 76 17 126/79 (95) 96 08/26/18 16:00 98.3 67 20 134/78 (96) 98 08/26/18 12:00 98.8 84 18 129/70 (89) 99 08/26/18 09:00 Room Air 08/26/18 08:00 98.3 69 18 125/71 (89) 99 08/26/18 04:00 98.2 64 12 123/74 (90) 08/26/18 00:00 98.6 86 115/74 (88) Intake and Output 08/25/18 08/26/18 18:59 06:59 Intake Total 1274 ml 1255 ml Output Total 170 ml 100 ml Balance 1104 ml 1155 ml Intake Oral 1274 ml 1200 ml IV Total 55 ml Output Drainage Total 170 ml 100 ml # Voids 3 11 Height (Feet): 5 Height (Inches): 11.00 Weight (Pounds): 180 General Appearance: WD/WN, mild distress Neck: non-tender Cardiovascular: normal rate, regular rhythm, no JVD Respiratory/Chest: lungs clear Objective has limited rom Raulito Dorsey MD Aug 26, 2018 22:42
--- NOTE | 2018-08-27 00:15 | NUR ---
NURSE NOTES: Pt is sleeping comfortably. His girlfriend at the bedside.
[2018-08-27] MEDS: Vancomycin 1gm/D5W 275ml IVPB SCH ×6 (01:43→18:12)
--- NOTE | 2018-08-27 02:00 | NUR ---
NURSE NOTES: Pt is still sleeping comfortably. Girlfriend is at the bedside.
[2018-08-27] MEDS: HYDROcodone/Acetamin 10/325 tab ORAL PRN ×4 (03:05→22:55)
[2018-08-27 04:00] VITALS: BP 120/72
[2018-08-27] MEDS: HYDROmorphone 1mg/ml Carpuject IVP PRN ×4 (05:19→20:02)
[2018-08-27 06:24] LABS: INR 0.9 (0.9-1.1)
[2018-08-27 06:29] LABS: EOSINOPHILS % (AUTO) 1.5 % (0.0-3.0); HEMATOCRIT 41.5 % (42.0-52.0); HEMOGLOBIN 14.2 G/DL (14.2-18.0); LYMPHOCYTES % (AUTO) 30.4 % (20.0-45.0); MEAN CORPUSCULAR VOLUME 92 FL (80-99); MONOCYTES % (AUTO) 9.6 % (1.0-10.0); NEUTROPHILS % (AUTO) 57.6 % (45.0-75.0); PLATELET COUNT 307 K/UL (150-450); RED CELL DISTRIBUTION WIDTH 10.7 % (11.6-14.8); WHITE BLOOD COUNT 7.1 K/UL (4.8-10.8)
[2018-08-27] MEDS: Dronabinol 2.5mg Cap ORAL SCH ×2 (06:30→18:13)
[2018-08-27 06:37] LABS: ALANINE AMINOTRANSFERASE 59 U/L (12-78); ALBUMIN 3.5 G/DL (3.4-5.0); ALBUMIN/GLOBULIN RATIO 1.2 (1.0-2.7); ALKALINE PHOSPHATASE 74 U/L (46-116); ANION GAP 6 mmol/L (5-15); ASPARTATE AMINO TRANSFERASE 24 U/L (15-37); BILIRUBIN,TOTAL 0.4 MG/DL (0.2-1.0); BLOOD UREA NITROGEN 9 mg/dL (7-18); CARBON DIOXIDE 30 MMOL/L (21-32); CHLORIDE 104 MMOL/L (98-107); CREATININE 0.9 MG/DL (0.55-1.30); SODIUM 140 MMOL/L (136-145)
--- NOTE | 2018-08-27 07:15 | NUR ---
HAND-OFF: Report given to RAY Ascencio.
--- NOTE | 2018-08-27 07:51 | NUR ---
NURSE NOTES: ASLEEP. IN NO APPARENT DISTRESS. LEFT ARM DRESSING DRY AND INTACT. WOUND VAC ON AND WORKING WELL.
[2018-08-27 08:00] VITALS: BP 125/72
[2018-08-27] MEDS: Cefepime HCl 1 GM in D5W 55 ML IVPB SCH ×2 (08:47→21:01)
[2018-08-27] MEDS: Docusate 100mg cap ORAL SCH ×2 (08:50→18:13)
[2018-08-27] MEDS: Sennosides 8.6mg tab ORAL SCH ×2 (08:50→18:12)
[2018-08-27] MEDS: Lyrica 25mg cap ORAL SCH ×3 (08:50→18:13)
[2018-08-27] MEDS: oxyCONTIN 10mg tab ORAL SCH (08:51)
[2018-08-27] MEDS: FLUoxetine 10mg cap ORAL SCH (08:51)
--- NOTE | 2018-08-27 10:40 | Infectious Diseases Prog Note ---
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)- now with ongoing significant swelling Plan: -Continue prophylatic IV Vancomycin #7 and Cefepime #7 (to avoid nephrotoxicity ) while open wounds ( may DC AB Rx soon ) -f/u cx -Monitor CBC/CMP, temperatures -wound care -ortho and plastic sx f/u: delayed closure vs skin grafting on Monday 08/28 Subjective Allergies: Coded Allergies: No Known Allergies (Unverified , 08/20/18) Subjective afebrile no leukocytosis Objective Vital Signs Last 24 Hour Vital Signs Date Time Temp Pulse Resp B/P (MAP) Pulse Ox O2 Delivery O2 Flow Rate FiO2 08/27/18 09:21 97.7 08/27/18 09:21 97.7 08/27/18 09:20 97.7 08/27/18 09:00 Room Air 08/27/18 08:00 97.7 54 18 125/72 (89) 98 08/27/18 04:00 98.9 69 16 120/72 (88) 97 08/26/18 23:58 98.6 72 19 124/77 (93) 96 08/26/18 21:00 Room Air 08/26/18 20:00 98.8 76 17 126/79 (95) 96 08/26/18 16:00 98.3 67 20 134/78 (96) 98 08/26/18 12:00 98.8 84 18 129/70 (89) 99 Height (Feet): 5 Height (Inches): 11.00 Weight (Pounds): 180 Objective General Appearance: WD/WN HEENT: normocephalic, atraumatic Respiratory/Chest: chest wall non-tender, lungs clear Cardiovascular: normal peripheral pulses, normal rate Abdomen: soft, non tender Genitourinary: normal external genitalia Extremities: no cyanosis, no clubbing, other - resting left arm, L fingers are warm and he can move all of them Skin: no lesions 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 Laboratory Tests Test 08/27/18 05:05 White Blood Count 7.1 K/UL (4.8-10.8) Red Blood Count 4.50 M/UL (4.70-6.10) L Hemoglobin 14.2 G/DL (14.2-18.0) Hematocrit 41.5 % (42.0-52.0) L Mean Corpuscular Volume 92 FL (80-99) Mean Corpuscular Hemoglobin 31.5 PG (27.0-31.0) H Mean Corpuscular Hemoglobin Concent 34.2 G/DL (32.0-36.0) Red Cell Distribution Width 10.7 % (11.6-14.8) L Platelet Count 307 K/UL (150-450) Mean Platelet Volume 6.3 FL (6.5-10.1) L Neutrophils (%) (Auto) 57.6 % (45.0-75.0) Lymphocytes (%) (Auto) 30.4 % (20.0-45.0) Monocytes (%) (Auto) 9.6 % (1.0-10.0) Eosinophils (%) (Auto) 1.5 % (0.0-3.0) Basophils (%) (Auto) 1.0 % (0.0-2.0) Prothrombin Time 10.0 SEC (9.30-11.50) Prothromb Time International Ratio 0.9 (0.9-1.1) Activated Partial Thromboplast Time 30 SEC (23-33) Sodium Level 140 MMOL/L (136-145) Potassium Level 4.0 MMOL/L (3.5-5.1) Chloride Level 104 MMOL/L (98-107) Carbon Dioxide Level 30 MMOL/L (21-32) Anion Gap 6 mmol/L (5-15) Blood Urea Nitrogen 9 mg/dL (7-18) Creatinine 0.9 MG/DL (0.55-1.30) Estimat Glomerular Filtration Rate > 60 mL/min (>60) Glucose Level 107 MG/DL (74-106) H Calcium Level 9.0 MG/DL (8.5-10.1) Total Bilirubin 0.4 MG/DL (0.2-1.0) Aspartate Amino Transf (AST/SGOT) 24 U/L (15-37) Alanine Aminotransferase (ALT/SGPT) 59 U/L (12-78) Alkaline Phosphatase 74 U/L (46-116) Total Protein 6.4 G/DL (6.4-8.2) Albumin 3.5 G/DL (3.4-5.0) Globulin 2.9 g/dL Albumin/Globulin Ratio 1.2 (1.0-2.7) Current Medications Medications (Trade) Dose Ordered Sig/Diane Route PRN Reason Start Time Stop Time Status Last Admin Dose Admin Acetaminophen/ Hydrocodone Bitart ([place] [address]) 1 tab Q3H PRN ORAL PAIN 1-5 08/26/18 21:14 09/02/18 21:13 08/27/18 03:05 Al Hydroxide/Mg Hydroxide (Mylanta) 30 ml Q6H PRN ORAL GERD/DYSPEPSIA 08/21/18 07:45 09/20/18 07:44 Cefepime HCl 1 gm/ Dextrose 55 ml @ 110 mls/hr EVERY 12 HOURS IVPB 08/21/18 21:00 08/28/18 20:59 08/27/18 08:47 Diphenhydramine HCl (Benadryl) 25 mg Q6H PRN ORAL Itching 08/21/18 07:45 09/20/18 07:44 Docusate Sodium (Colace) 100 mg TWICE A DAY ORAL 08/21/18 09:00 09/20/18 08:59 08/27/18 08:50 Dronabinol (Marinol) 2.5 mg Q12H ORAL 08/23/18 18:00 09/22/18 17:59 08/27/18 06:30 Famotidine (Pepcid) 20 mg BID ORAL 08/21/18 09:00 09/20/18 08:59 08/27/18 08:50 Fluoxetine HCl (PROzac) 10 mg DAILY ORAL 08/27/18 09:00 09/26/18 08:59 08/27/18 08:51 Hydromorphone HCl (Dilaudid) 1 mg Q4H PRN IVP BREAKTHROUGH PAIN 6-10 08/26/18 21:31 09/02/18 21:30 08/27/18 10:20 Magnesium Citrate (Citrate Of Magnesia) 300 ml DAILYPRN PRN ORAL Severe constipation 08/21/18 14:00 09/20/18 13:59 Ondansetron HCl (Zofran) 4 mg Q4H PRN IVP Nausea & Vomiting 08/21/18 07:45 09/20/18 07:44 08/21/18 23:28 Oxycodone HCl (OxyCONTIN) 10 mg Q12HR ORAL 08/26/18 21:17 09/02/18 21:16 08/27/18 08:51 Pregabalin (Lyrica) 25 mg THREE TIMES A DAY ORAL 08/27/18 09:00 09/26/18 08:59 08/27/18 08:50 Sennosides (Senokot) 8.6 mg TWICE A DAY ORAL 08/22/18 18:00 09/22/18 08:59 08/27/18 08:50 Silver Sulfadiazine (Silvadene Cream 25gm) 1 applic TWICE A DAY TOPIC 08/21/18 18:00 09/20/18 17:59 08/27/18 08:51 Vancomycin HCl (Vanco rx to dose) 1 ea DAILY PRN MISC Per rx protocol 08/21/18 02:00 09/20/18 01:59 Vancomycin HCl 1 gm/Dextrose 275 ml @ 183.708 mls/hr Q8H IVPB 08/26/18 18:00 08/31/18 17:59 08/27/18 10:19 Chelsey Clay M.D. Aug 27, 2018 10:40
[2018-08-27 12:00] VITALS: BP 128/79
--- NOTE | 2018-08-27 12:20 | NUR ---
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 RADIUS/ULNA FRACTURE . OPEN WOUND VS: BP 125/72, P 54, T 97.7, RR 19, SpO2 96 RBC 4.50, HCT 41.5 IS:DIALUDID 1mg VANCOMYCIN 275ml IVPB SILVER SULFADIAZINE TOPICAL OXYCODONE 10mg LYRICA 25mg CEFEPIME 55ml IVPB MARINOL 2.5mg NORCO 10/325 1tab PLAN: CONTINUE WOUND VAC CONTINUE IV VANCO AND CEFEPIME Delayed closure vs skin grafting 08/28 PAIN MANAGEMENT 3E MED/SURG STATUS
--- NOTE | 2018-08-27 13:30 | NUR ---
NURSE NOTES: OOB,AMBULATED OUT IN THE HAM TOLERATED.
[2018-08-27 16:00] VITALS: BP 134/76
--- NOTE | 2018-08-27 19:00 | NUR ---
NURSE NOTES: QUIET IN BED. IN NO ACUTE DISTRESS.
--- NOTE | 2018-08-27 19:30 | NUR ---
NURSE NOTES: Received report from RAY Ascencio and rounds made. Received pt sitting up in bed, AOX4, pain level 8/10, will medicate for pain, L arm with arm sling and connected to Hemovac. Hemovac setting checked and verified. IV R FA patent and intact. IV fluid infusing as ordered. Bed in lowest position and locked, side rails up x 2, call light within reach. Will continue to monitor.
--- NOTE | 2018-08-27 19:52 | NUR ---
HAND-OFF: Report given to Wai POLANCO RN.
[2018-08-27 20:00] VITALS: BP 121/75
[2018-08-27] MEDS: oxyCONTIN 20mg tab ORAL SCH (20:59)
[2018-08-27] MEDS ORDERED: Milk of Magnesia 30ml Ud ORAL SCH (21:15)
--- NOTE | 2018-08-27 22:00 | Progress Note ---
DATE: 08/27/2018 ACUTE PAIN MANAGEMENT PHYSICIAN PROGRESS NOTE MEDICATIONS: Medication administration record reviewed. Medications include antibiotics, Colace, Silvadene cream, Senokot, Pepcid, Prozac, Marinol, OxyContin q.12 hours, vancomycin, Lyrica. PRN medications include Zofran, Benadryl, Mylanta, magnesium citrate, Florence, Dilaudid. LABORATORY STUDIES: From this morning, 08/27/2018 shows white count 7, hematocrit 42, platelets 307. Sodium 140, potassium 4.0, chloride 104, bicarb 30, BUN 9, creatinine 0.9, glucose 107, calcium 9.0. INR 0.9, PTT 30. I spent over sixty minutes in consultation today. I discussed the case with the floor nurse, RAY Ascencio. I saw the patient this evening with the night nurse, RNEmiliano, along with the patient's girlfriend, Jose D. I discussed the case with the hospital pharmacist, Jame Velasquez. The patient has now received 5 doses of Lyrica and he states that his nerve pain has improved. It is unclear at this time whether the Lyrica is causing with increasing the opioids. The patient has tolerated 2 doses of OxyContin at 10 mg controlled release. The patient shows no signs of oversedation or other side effects. The patient has still requested multiple breakthrough doses of Florence and IV Dilaudid throughout the past 24 hours as well despite his OxyContin dosing. Therefore in an attempt to decrease his requirement for the IV Dilaudid, I will increase the OxyContin controlled release to 20 mg. I will continue the frequency of every 12 hours. I did explain to the patient that the increasing OxyContin controlled release dosing even further increases his risk for opioid dependency. The patient understands and wishes to proceed to help improve his pain complaints. The patient did tolerate Prozac 10 mg early this morning. I will continue that dose every morning. Infectious Disease service has recommended to continue prophylactic IV vancomycin and cefepime with the open wounds, they did suggest that antibiotics treatment could be discontinued soon depending on further treatment. Surgeon, Dr. Bernstein is expected to evaluate the patient tomorrow to make further surgical recommendations. Attending physician, Dr. Raulito Meraz continues to follow the patient's progress closely as the patient's attending physician. I did leave prescriptions for Florence, OxyContin controlled release, Prozac, and Lyrica. They did recommend the patient to clarify his means to obtain these outpatient prescriptions, as these multiple prescriptions may be pricey. The patient did state that he is contacting various options. Raulito Hernandez M.D. DR: JUAN A JOB#: [id number] CC:
[2018-08-28] VITALS: BP 126/81
[2018-08-28] MEDS: Vancomycin 1gm/D5W 275ml IVPB SCH ×6 (01:53→18:24)
[2018-08-28 04:00] VITALS: BP 110/66
[2018-08-28] MEDS: HYDROcodone/Acetamin 10/325 tab ORAL PRN ×2 (04:34→18:22)
[2018-08-28] MEDS: Dronabinol 2.5mg Cap ORAL SCH ×3 (06:00→18:00)
--- NOTE | 2018-08-28 06:00 | NUR ---
NURSE NOTES: Wound vac removed per MD order. Wet to dry dressing applied with dry 4x4 and kerlex, tape. Pt tolerated procedure well.
[2018-08-28] MEDS: HYDROmorphone 1mg/ml Carpuject IVP PRN ×4 (06:06→20:00)
--- NOTE | 2018-08-28 07:00 | NUR ---
NURSE NOTES: Dr Bernstein came saw pt, ordered to resume regular diet. Diet ordered in the computer, dietary made aware, diet menu faxed to dietary. Will endorse to next nurse.
--- NOTE | 2018-08-28 07:27 | Plastic Surgery Progress Note ---
Plastic Surgery-Progress Note Subjective Additional Comments Follow up visit on patient with traumatic left arm open fracture s/p ORIF and subsequent fasciotomy for compartment syndrome. He has had the wound vac for the last 5 days. His pain is slowly improving but still requiring some IV pain meds. Here to evaluate if can perform delayed primary closure. Objective Last 24 Hour Vital Signs Date Time Temp Pulse Resp B/P (MAP) Pulse Ox O2 Delivery O2 Flow Rate FiO2 08/28/18 04:00 97.8 73 17 110/66 (81) 99 08/28/18 00:00 97.8 94 19 126/81 (96) 100 08/27/18 21:00 Room Air 08/27/18 20:00 97.6 99 18 121/75 (90) 100 08/27/18 18:44 98.5 08/27/18 18:02 98.5 08/27/18 16:00 98.5 78 18 134/76 (95) 98 08/27/18 15:32 97.7 08/27/18 12:00 98.3 72 16 128/79 (95) 97 08/27/18 09:21 97.7 08/27/18 09:00 Room Air 08/27/18 08:00 97.7 54 18 125/72 (89) 98 I&O Intake and Output 08/27/18 08/28/18 19:00 07:00 Intake Total 810 ml 330.000 ml Output Total 25 ml Balance 785 ml 330.000 ml Intake Oral 480 ml IV Total 330 ml 330.000 ml Drainage Total 25 ml # Voids 4 3 Skin Exam Narrative Left forearm fasciotomy wounds are clean and granular. More superficial but still with some concavity. Swelling present in forearm but less than last visit. Skin mobility around both fasciotomy wounds is minimal. Plan Additional Comments At this point patient not ready to undergo delayed primary closure of the wounds. When trying to approximate the skin edges of each wound there was too much tension and given that closing one wound would lead to more tension on the other wound given their anatomic location, it would be prudent to continue with the wound vac and allow more time and swelling to diminish before deciding on definitive approach on his wound closure. Explained all of this to the patient and all questions answered. Once he is requiring only oral pain management, he would be ok to be discharged home from my standpoint where at that time will arrange weekly wound care follow up with me at the outpatient wound center at [facility]. Thank you. Adrian Bernstein MD Aug 28, 2018 07:27
--- NOTE | 2018-08-28 07:37 | NUR ---
HAND-OFF: Report given to RAY Ascencio. Pt in stable condition.
--- NOTE | 2018-08-28 07:56 | NUR ---
NURSE NOTES: AWAKE/ALERT. PAIN SCALE 6/10. LEFT FOREARM DRESSING DRY AND INTACT. ELEVATED ON PILLOW. ABLE TO MOVE FINGERS.CIRCULATION GOOD, IN NO DISTRESS.
[2018-08-28 08:00] VITALS: BP 113/69
--- NOTE | 2018-08-28 09:00 | NUR ---
NURSE NOTES: Received report from Silva RN. Patient is awake alert and oriented, no acute distress noted, patient is reporting pain rated 6/10 in left arm, noted left arm wrapped in kerlix, clean dry and intact. Will medicate patient per order. IV intact, asymptomatic. Updated on plan of care. Side rails upx2, bed low and locked, call light in reach. Will continue to monitor.
[2018-08-28] MEDS: Sennosides 8.6mg tab ORAL SCH ×2 (09:33→18:23)
[2018-08-28] MEDS: FLUoxetine 10mg cap ORAL SCH (09:33)
[2018-08-28] MEDS: oxyCONTIN 20mg tab ORAL SCH ×2 (09:34→21:16)
[2018-08-28] MEDS: Docusate 100mg cap ORAL SCH ×2 (09:34→18:23)
[2018-08-28] MEDS: Cefepime HCl 1 GM in D5W 55 ML IVPB SCH ×2 (09:35→21:15)
[2018-08-28] MEDS: Lyrica 25mg cap ORAL SCH ×3 (09:35→18:23)
--- NOTE | 2018-08-28 10:08 | NUR ---
NURSE NOTES: Called pharmacist Sofie and reported Vanco trough from this morning, pharmacist stated to give 1000 dose as ordered, dose will not be changed.
--- NOTE | 2018-08-28 11:07 | NUR ---
RD ASSESSMENT & RECOMMENDATIONS SEE CARE ACTIVITY FOR COMPLETE ASSESSMENT DAILY ESTIMATED NEEDS: Needs based on Wound/ 80.7kg 25-30 kcals/kg total kcals 1.25-1.5 g protein/kg 100-121 g total protein 25-30 mL/kg total fluid mLs NUTRITION DIAGNOSIS: Increased kcal/prot/micronutrients needs R/T wound healing as evidenced by pt admitted w/ open fracture s/p ORIF and subsequent fasciotomy at lt arm, with wound vac. CURRENT DIET:REGULAR PO DIET RECOMMENDATIONS: REGULAR + SNACKS BID ADDITIONAL RECOMMENDATIONS: * Wound healing: add MVI x 1, Vit C 500mg QD add ZnSO4 220mg QD x 10 days Ronald 1pkt BID added to tray * Standing wt as able for accurate CBW
[2018-08-28 12:00] VITALS: BP 133/68
--- NOTE | 2018-08-28 14:10 | Infectious Diseases Prog Note ---
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)- now with ongoing significant swelling Plan: -Continue prophylatic IV Vancomycin #8 and Cefepime #8 (to avoid nephrotoxicity ) while open wounds ( may DC AB Rx soon ) -f/u cx -Monitor CBC/CMP, temperatures -wound care -ortho and plastic sx f/u: delayed closure vs skin grafting on Monday 08/28 Subjective Allergies: Coded Allergies: No Known Allergies (Unverified , 08/20/18) Subjective afebrile no leukocytosis Objective Vital Signs Last 24 Hour Vital Signs Date Time Temp Pulse Resp B/P (MAP) Pulse Ox O2 Delivery O2 Flow Rate FiO2 08/28/18 12:00 98.1 82 20 133/68 (89) 98 08/28/18 08:20 Room Air 08/28/18 08:00 97.7 78 20 113/69 (84) 97 08/28/18 04:00 97.8 73 17 110/66 (81) 99 08/28/18 00:00 97.8 94 19 126/81 (96) 100 08/27/18 21:00 Room Air 08/27/18 20:00 97.6 99 18 121/75 (90) 100 08/27/18 18:44 98.5 08/27/18 18:02 98.5 08/27/18 16:00 98.5 78 18 134/76 (95) 98 08/27/18 15:32 97.7 Height (Feet): 5 Height (Inches): 11.00 Weight (Pounds): 178 Objective General Appearance: WD/WN HEENT: normocephalic, atraumatic Respiratory/Chest: chest wall non-tender, lungs clear Cardiovascular: normal peripheral pulses, normal rate Abdomen: soft, non tender Genitourinary: normal external genitalia Extremities: no cyanosis, no clubbing, other - resting left arm, L fingers are warm and he can move all of them Skin: no lesions 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 Laboratory Tests Test 08/28/18 08:55 Vancomycin Level Trough 13.1 ug/mL (5.0-12.0) H Current Medications Medications (Trade) Dose Ordered Sig/Diane Route PRN Reason Start Time Stop Time Status Last Admin Dose Admin Acetaminophen/ Hydrocodone Bitart ([place] 10/325) 1 tab Q3H PRN ORAL PAIN 1-5 08/26/18 21:14 09/02/18 21:13 08/28/18 04:34 Al Hydroxide/Mg Hydroxide (Mylanta) 30 ml Q6H PRN ORAL GERD/DYSPEPSIA 08/21/18 07:45 09/20/18 07:44 Cefepime HCl 1 gm/ Dextrose 55 ml @ 110 mls/hr EVERY 12 HOURS IVPB 08/21/18 21:00 08/28/18 22:00 08/28/18 09:35 Diphenhydramine HCl (Benadryl) 25 mg Q6H PRN ORAL Itching 08/21/18 07:45 09/20/18 07:44 Docusate Sodium (Colace) 100 mg TWICE A DAY ORAL 08/21/18 09:00 09/20/18 08:59 08/28/18 09:34 Dronabinol (Marinol) 2.5 mg Q12H ORAL 08/23/18 18:00 09/22/18 17:59 08/28/18 07:04 Famotidine (Pepcid) 20 mg BID ORAL 08/21/18 09:00 09/20/18 08:59 08/28/18 09:34 Fluoxetine HCl (PROzac) 10 mg DAILY ORAL 08/27/18 09:00 09/26/18 08:59 08/28/18 09:33 Hydromorphone HCl (Dilaudid) 1 mg Q4H PRN IVP BREAKTHROUGH PAIN 6-10 08/26/18 21:31 09/02/18 21:30 08/28/18 11:09 Magnesium Citrate (Citrate Of Magnesia) 300 ml DAILYPRN PRN ORAL Severe constipation 08/21/18 14:00 09/20/18 13:59 Ondansetron HCl (Zofran) 4 mg Q4H PRN IVP Nausea & Vomiting 08/21/18 07:45 09/20/18 07:44 08/21/18 23:28 Oxycodone HCl (OxyCONTIN) 20 mg Q12HR ORAL 08/27/18 21:00 09/03/18 20:59 08/28/18 09:34 Pregabalin (Lyrica) 25 mg THREE TIMES A DAY ORAL 08/27/18 09:00 09/26/18 08:59 08/28/18 13:58 Sennosides (Senokot) 8.6 mg TWICE A DAY ORAL 08/22/18 18:00 09/22/18 08:59 08/28/18 09:33 Silver Sulfadiazine (Silvadene Cream 25gm) 1 applic TWICE A DAY TOPIC 08/21/18 18:00 09/20/18 17:59 08/28/18 09:35 Vancomycin HCl (Vanco rx to dose) 1 ea DAILY PRN MISC Per rx protocol 08/21/18 02:00 09/20/18 01:59 Vancomycin HCl 1 gm/Dextrose 275 ml @ 183.708 mls/hr Q8H IVPB 08/26/18 18:00 08/28/18 23:59 08/28/18 10:21 Chelsey Clay M.D. Aug 28, 2018 14:10
--- NOTE | 2018-08-28 14:20 | General Progress Note ---
Progress Note Progress Note doing poorly has pain no fever no chills no chest pain haspain vitals stable cta s1,s2,rrr soft open woun on wound vac paincontrl on vanco and cefepime prophylaxis Raulito Virgen MD Aug 28, 2018 14:20
--- NOTE | 2018-08-28 14:32 | NUR ---
NURSE NOTES: Wound vac placed back on per MD order by BARRERA Ponce. Patient tolerated well.
--- NOTE | 2018-08-28 15:24 | NUR ---
NURSE NOTES:WOUND CARE FOLLOW-UP NOTES:Orders to continue NPWT at original settings confirmed with prior to placement.Wound dorsal L forearm beefy red with edges flat and adherent to base of wound .Ventral wound L forearm beefy red . Edges flat and adherent to base of wound Wounds dorsal and ventral L forearm each cleansed with Saline. Cavilon Skin barrier applied around borders of each wound.Transparent drape sheets then applied arounds borders of each wound. Granulofoam cut to conform to shape and size of each wound and covered with transparent drape sheets. Trac pads placed over each wound and connected via Y-connector to NPWT. NPWT resumed at 125mm/Hg to continuous suction.ABD pads placed under NPWT tubings. Lforearm wrapped loosely with kerlix and secured with zulema bandage rolloed loosely around L forearm. Pt encouraged to to continue to elevate arm on pillows. Pt tolerated procedure well.
[2018-08-28 16:00] VITALS: BP 121/61
--- NOTE | 2018-08-28 17:30 | Progress Note ---
DATE: 08/28/2018 ACUTE PAIN MANAGEMENT PHYSICIAN PROGRESS NOTE MEDICATIONS: Medication administration record reviewed. Medications include antibiotics, Colace, Silvadene cream, Senokot, Pepcid, Prozac, Marinol, OxyContin 20 mg q.12 h., and Lyrica 25 mg three times. PRN medications include Zofran, Benadryl, Mylanta, magnesium citrate, [place], and Dilaudid. LABORATORY STUDIES: No interval laboratory studies. VITAL SIGNS: Within normal limits. Afebrile, pulse 82, respirations 20, and blood pressure 133/68. Oxygen saturation 98% on room air. I spent over 60 minutes in consultation today. I discussed the case with the orthopedic floor nurse, RAY Ascencio, along with attending physician, Dr. Raulito Meraz. The wound care nurse is present at the bedside treating the wound. Plastic surgeon, Dr. Adrian Bernstein evaluated the patient earlier this morning and wrote "at this point the patient is not ready to undergo delayed primary closure of the wounds." When trying to approximate the skin edges of each wound, there was too much tension and given that closing one wound would lead more tension in other wound. Given the anatomic location, it will be prudent to continue with the wound VAC and allow more time in swelling to diminish before deciding on definitive on his wound closure. Explained all this to the patient and all questions answered. Once he is requiring only oral pain medication, he would be okay to be discharged home from my standpoint where at that time we will arrange weekly wound care followup with me at the outpatient wound center at "[facility] Dr. Meraz is aware of these recommendations. I have left prescriptions for OxyContin, [place], Lyrica, and Prozac. I encouraged the patient to speak with his contact at his erisa attorney's office, [place], to help expedite filling of the patient's prescriptions for home usage. The patient has been taking his scheduled Marinol and his scheduled OxyContin. The increased dose of the OxyContin 20 mg seems to be more effective. He has been continually reducing his request for IV Dilaudid. In fact, the only Dilaudid used recently was for the dressing change. I believe the OxyContin, [place] and his home marijuana usage should be adequate at this time for reasonable analgesia at home. I will defer discharge plan to rogers Meraz and the consulting physician. Dr. Meraz will also decide on any outpatient antibiotic needs. Dr. Bernstein's re-evaluation this morning is really appreciated to help with the long-term plan for this patient's recovery. Raulito Hernandez M.D. DR: YOU JOB#: [id number] CC:
--- NOTE | 2018-08-28 19:25 | NUR ---
HAND-OFF: Report given to Leslie BELL. Patient is in stable condition.
[2018-08-28] MEDS ORDERED: NS Irrig 1000ml ONE (19:26)
[2018-08-28] MEDS ORDERED: NS 500ML ONE (19:26)
--- NOTE | 2018-08-28 19:30 | NUR ---
NURSE NOTES: Received report & pt from RAY Mayo. Pt lying in bed, a&ox4, in room air, girlfriend at bedside. No s/s of acute distress & c/o 8/10 pain at this time. Wounds vac in place with setting 125 mmHg moderate continuous with serous drainage. Dressing C/D/I. IV site intact & S/L'd. Bed in lowest position, call light within reach. Will continue to monitor.
[2018-08-28 20:00] VITALS: BP 118/63
[2018-08-29] VITALS: BP 122/61
[2018-08-29 04:59] VITALS: BP 109/64
[2018-08-29] MEDS: Dronabinol 2.5mg Cap ORAL SCH ×2 (05:03→18:02)
--- NOTE | 2018-08-29 06:00 | NUR ---
NURSE NOTES: Offered pt [facility] pain med. Per pt, he's good for now & maybe he'll need it later instead.
[2018-08-29] MEDS: HYDROcodone/Acetamin 10/325 tab ORAL PRN ×3 (06:57→22:36)
--- NOTE | 2018-08-29 07:30 | NUR ---
HAND-OFF: Report given to RAY Mayo. Rounds done. Pt in stable condition.
--- NOTE | 2018-08-29 07:45 | NUR ---
NURSE NOTES: Received report from Leslie RN. Patient is asleep during rounds, no acute distress noted. Wound vac on, running per order, dressing clean and dry. Side rails upx2, bed low and locked, call light in reach. Will continue to monitor.
[2018-08-29 08:00] VITALS: BP 118/56
--- NOTE | 2018-08-29 08:00 | Progress Note ---
DATE: 08/29/2018 ACUTE PAIN MANAGEMENT PHYSICIAN PROGRESS NOTE MEDICATIONS: Medication administration record reviewed. Medication include Colace, Silvadene cream, Senokot, Pepcid, Prozac, Marinol, OxyContin, Lyrica, and vancomycin. P.r.n. medications include Zofran, Benadryl, Mylanta, magnesium citrate, [place], and Dilaudid. LABORATORY STUDIES: From August 27, 2018 shows white count 7, hematocrit 42. OBJECTIVE: VITAL SIGNS: Within normal limits. Afebrile, pulse 70, respirations 20, blood pressure 109/64, and oxygen saturation 97% on room air. I spent over 60 minutes in consultation today. I saw the patient at the bedside with an overnight nurse RN, Leslie. I discussed the case with attending physician, Dr. Raulito Meraz. Dr. Meraz is coordinating the patient's care with multiple physicians including Plastic surgeon Dr. Bernstein, and Orthopedic surgeon Dr. Ellis. The patient remains on prophylactic antibiotics with his open wounds per Infectious Disease, . The patient now has received two doses of OxyContin controlled release 20 mg. He has not shown any respiratory compromise and has had normal oxygen saturation greater than 97% on room air over the past 24 hours. He also has been excepting the Marinol doses. This combination has been serving for good baseline analgesia. He has only required one dose of Dilaudid and one dose of [place] over the past 12 hours. Even just offered the patient a p.r.n. dose of [place] presently, he stated that his pain is adequate that he does not need a breakthrough medication. The patient remains on Prozac and Lyrica, which may be helpful for his neuropathic pain complaints. The patient has been ambulating in and out of bed. The current analgesic regimen seems adequate presently. I renewed his current doses. Additionally, multiple outpatient prescriptions have been left including OxyContin 20 mg controlled release, [place], Prozac, and Lyrica. We will Hep-Lock his IV to encourage movement in and out of bed. With the OxyContin usage, I will continue him on Colace b.i.d. along with Senokot b.i.d. I have also asked the nurse to dose the patient with magnesium citrate, since he has not had a bowel movement in over 48 hours. Raulito Hernandez M.D. DR: LA JOB#: [id number] CC:
--- NOTE | 2018-08-29 09:16 | General Progress Note ---
Assessment/Plan Status Narrative awaitr dc plannign needs wound vac per home nad pain meds has been written for him. Subjective Date patient seen: Aug 29, 2018 Time patient seen: 09:14 Allergies: Coded Allergies: No Known Allergies (Unverified , 08/20/18) Subjective has pain walking no fever nochills Objective Last 24 Hour Vital Signs Date Time Temp Pulse Resp B/P (MAP) Pulse Ox O2 Delivery O2 Flow Rate FiO2 08/29/18 04:59 99.0 70 20 109/64 (79) 97 08/29/18 00:00 99.1 90 20 122/61 (81) 98 08/28/18 21:00 Room Air 08/28/18 20:00 99.5 92 20 118/63 (81) 97 08/28/18 16:00 97.7 97 20 121/61 (81) 98 08/28/18 12:00 98.1 82 20 133/68 (89) 98 Intake and Output 08/28/18 08/29/18 19:00 07:00 Intake Total 1980.000 ml 620 ml Output Total 825 ml 1075 ml Balance 1155.000 ml -455 ml Intake Oral 1650 ml 620 ml IV Total 330.000 ml Output Urine Total 800 ml 1000 ml Drainage Total 25 ml 75 ml # Voids 3 Height (Feet): 5 Height (Inches): 11.00 Weight (Pounds): 178 Objective left arm on wound vac cta s1,s2,rrr soft o clubbing Raulito Meraz MD Aug 29, 2018 09:16
[2018-08-29] MEDS ORDERED: HYDROmorphone 1mg/ml Carpuject IVP PRN (09:31)
[2018-08-29] MEDS: FLUoxetine 10mg cap ORAL SCH (09:58)
[2018-08-29] MEDS: Sennosides 8.6mg tab ORAL SCH ×2 (09:59→18:03)
[2018-08-29] MEDS: Lyrica 25mg cap ORAL SCH ×3 (09:59→18:02)
[2018-08-29] MEDS: Docusate 100mg cap ORAL SCH ×2 (10:00→18:03)
[2018-08-29] MEDS: oxyCONTIN 20mg tab ORAL SCH ×2 (10:01→21:10)
--- NOTE | 2018-08-29 10:30 | NUR ---
TRANSIT MECHANIC NOTES FAXED WOUND VAC FORM TO [facility] F# [phone].
[2018-08-29 12:00] VITALS: BP 114/75
--- NOTE | 2018-08-29 15:01 | NUR ---
AUTOMOTIVE [employer] NOTES SPOKE WITH AYALA AT [employer] , MARITZA (MARINA) IS OUT OF OFFICE TODAY. SHE VERIFIED THEY RECEIVED ORDERS FOR HOME HEALTH THAT I FAXED AND SHE FORWARD IT ROCIO SENT WHO IT TO THE VETTING DEPT. GAVE ROCIO MY PHONE NUMBER FOR HER TO CALL ME BACK WITH A STATUS ON THE HOME HEALTH AND THE PAYMENT AND ARRANGEMENT OF WOUND VAC.
[2018-08-29 16:00] VITALS: BP 112/55
--- NOTE | 2018-08-29 17:07 | Infectious Diseases Prog Note ---
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)- now with ongoing significant swelling Plan: -Continue to monitor off prophylatic antibiotics -08/28 SP IV Vancomycin and Cefepime #8 -f/u cx -Monitor CBC/CMP, temperatures -wound care -ortho and plastic sx f/u- wound vac and eventual closure Subjective Allergies: Coded Allergies: No Known Allergies (Unverified , 08/20/18) Subjective afebrile no leukocytosis Objective Vital Signs Last 24 Hour Vital Signs Date Time Temp Pulse Resp B/P (MAP) Pulse Ox O2 Delivery O2 Flow Rate FiO2 08/29/18 16:00 98.5 87 18 112/55 (74) 94 08/29/18 12:00 98.4 98 20 114/75 (88) 94 08/29/18 09:00 Room Air 08/29/18 08:00 98.0 63 20 118/56 (76) 96 08/29/18 04:59 99.0 70 20 109/64 (79) 97 08/29/18 00:00 99.1 90 20 122/61 (81) 98 08/28/18 21:00 Room Air 08/28/18 20:00 99.5 92 20 118/63 (81) 97 Height (Feet): 5 Height (Inches): 11.00 Weight (Pounds): 178 Objective General Appearance: WD/WN HEENT: normocephalic, atraumatic Respiratory/Chest: chest wall non-tender, lungs clear Cardiovascular: normal peripheral pulses, normal rate Abdomen: soft, non tender Genitourinary: normal external genitalia Extremities: no cyanosis, no clubbing, other - resting left arm, L fingers are warm and he can move all of them Skin: no lesions 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 Current Medications Medications (Trade) Dose Ordered Sig/Diane Route PRN Reason Start Time Stop Time Status Last Admin Dose Admin Acetaminophen/ Hydrocodone Bitart ([place] 10/325) 1 tab Q3H PRN ORAL PAIN 1-5 08/29/18 09:14 09/05/18 09:13 08/29/18 11:27 Al Hydroxide/Mg Hydroxide (Mylanta) 30 ml Q6H PRN ORAL GERD/DYSPEPSIA 08/21/18 07:45 09/20/18 07:44 Diphenhydramine HCl (Benadryl) 25 mg Q6H PRN ORAL Itching 08/21/18 07:45 09/20/18 07:44 Docusate Sodium (Colace) 100 mg TWICE A DAY ORAL 08/21/18 09:00 09/20/18 08:59 08/29/18 10:00 Dronabinol (Marinol) 2.5 mg Q12H ORAL 08/23/18 18:00 09/22/18 17:59 08/29/18 05:03 Famotidine (Pepcid) 20 mg BID ORAL 08/21/18 09:00 09/20/18 08:59 08/29/18 10:00 Fluoxetine HCl (PROzac) 10 mg DAILY ORAL 08/27/18 09:00 09/26/18 08:59 08/29/18 09:58 Hydromorphone HCl (Dilaudid) 1 mg Q4H PRN IVP BREAKTHROUGH PAIN 6-10 08/29/18 09:31 09/05/18 09:30 Magnesium Citrate (Citrate Of Magnesia) 300 ml DAILYPRN PRN ORAL Severe constipation 08/21/18 14:00 09/20/18 13:59 08/29/18 06:54 Ondansetron HCl (Zofran) 4 mg Q4H PRN IVP Nausea & Vomiting 08/21/18 07:45 09/20/18 07:44 08/21/18 23:28 Oxycodone HCl (OxyCONTIN) 20 mg Q12HR ORAL 08/29/18 09:00 09/05/18 08:59 08/29/18 10:01 Pregabalin (Lyrica) 25 mg THREE TIMES A DAY ORAL 08/27/18 09:00 09/26/18 08:59 08/29/18 13:37 Sennosides (Senokot) 8.6 mg TWICE A DAY ORAL 08/22/18 18:00 09/22/18 08:59 08/29/18 09:59 Silver Sulfadiazine (Silvadene Cream 25gm) 1 applic TWICE A DAY TOPIC 08/21/18 18:00 09/20/18 17:59 08/29/18 10:01 Chelsey Clay M.D. Aug 29, 2018 17:07
--- NOTE | 2018-08-29 19:30 | NUR ---
HAND-OFF: Report given to Buzzo RN. Patient is in stable condition.
--- NOTE | 2018-08-29 19:45 | NUR ---
NURSE NOTES: Receive a report from RAY Mayo. Done rounds. Pt is awake and alert. No acute distress noted. Pain tolerating 5/10. Wound Vac on and serous discharge drained with 125mmHg continuous moderate mode without leak. Will continue to monitor.
[2018-08-29 20:00] VITALS: BP 123/71
--- NOTE | 2018-08-29 23:30 | NUR ---
NURSE NOTES: After taking prn [place] 10/325mg 1 t po, pain on finger tolerating despite taking routine Oxycontin 1t po. Left hand movement clumsy with 30% of sensory. Relieved edema on left hand. Ambulating unit with his girl friend. Wound Vac functioning properly. JUAN LUIS bandage wrapped around on left forearm and keep dry and clean. Will continue to monitor.
[2018-08-30] VITALS: BP 112/63
[2018-08-30 04:36] VITALS: BP 100/53
[2018-08-30] MEDS: Dronabinol 2.5mg Cap ORAL SCH ×2 (05:39→18:00)
--- NOTE | 2018-08-30 07:15 | NUR ---
HAND-OFF: Report given to RAY Graf.
--- NOTE | 2018-08-30 07:30 | NUR ---
NURSE NOTES: Patient is in bed asleep. Stable. No signs of facial grimacing or distress noted. Patient in bed in locked and lowest position with call light within reach. All safety measures provided. Will continue to monitor.
[2018-08-30 08:00] VITALS: BP 111/62
--- NOTE | 2018-08-30 08:00 | Progress Note ---
DATE: 08/30/2018 ACUTE PAIN MANAGEMENT PHYSICIAN PROGRESS NOTE MEDICATIONS: Medication administration record reviewed. Medications include Mylanta, Benadryl, Colace, Marinol, Pepcid, Prozac, [place], Dilaudid, magnesium citrate, Zofran, OxyContin, Lyrica, Senokot, and Silvadene cream. LABORATORY STUDIES: No interval laboratory studies. OBJECTIVE: VITAL SIGNS: Within normal limits. Afebrile, pulse 78, respirations 18, blood pressure 100/53, oxygen saturation 100% on room air. I spent over 60 minutes in consultation today. I saw the patient at bedside with the nurse RN, Ashanti. Yesterday, I dosed the patient with magnesium citrate and he did have a resulting bowel movement. He will continue on Colace and Senokot b.i.d. as he continues on [id number] OxyContin. The patient is psychologically preparing to discharge from the hospital soon. He understands our recommendations to wean-off of the parenteral Dilaudid. His last dose of Dilaudid p.r.n. was over 24 hours ago. He does continue to request the breakthrough [place] 10 mg tablets to complement the scheduled OxyContin 20 mg controlled release, which he received at 9 a.m. and 9 p.m., along with the scheduled q.12 h. dosing of Marinol which he receives at 6 a.m. and 6 p.m. The patient continues to tolerate the morning dose of Prozac 10 mg along with t.i.d. dosing of Lyrica. This combination of medications seems to be tolerated and helping more so with his pain to enable discharge home on oral analgesics. I have left prescriptions for his medications for home usage. Infectious Disease, , continues to follow the patient daily and is now trying the patient off of prophylactic antibiotics here in the hospital. Dr. Meraz has ordered discharge planning, as the patient needs a wound VAC at home. At this point, I will defer discharge plan to Dr. Meraz and the other medical staff. The patient will follow up with Dr. Ellis and Dr. Bernstein in their outpatient clinic offices as earlier discussed. The patient has normal gastrointestinal function with no nausea symptoms and regular bowel movements. Magnesium citrate, Colace, and Senokot can all be obtained over the counter. Raulito Hernandez M.D. DR: JLUIS JOB#: [id number] CC:
[2018-08-30] MEDS: Sennosides 8.6mg tab ORAL SCH ×2 (09:03→18:00)
[2018-08-30] MEDS: Docusate 100mg cap ORAL SCH ×2 (09:03→18:00)
[2018-08-30] MEDS: FLUoxetine 10mg cap ORAL SCH (09:04)
[2018-08-30] MEDS: Lyrica 25mg cap ORAL SCH ×3 (09:05→18:00)
[2018-08-30] MEDS: oxyCONTIN 20mg tab ORAL SCH (09:05)
--- NOTE | 2018-08-30 09:13 | General Progress Note ---
Progress Note Progress Note doing better has pain has given rosmery nmedicaiont by dr sunny gray await the wound vac to be discharged Raulito Virgen MD Aug 30, 2018 09:13
--- NOTE | 2018-08-30 09:30 | NUR ---
NURSE NOTES: Dressing changed by wound care nurse Kris and assisted by RN. Tolerated well. Patient connected back to wound vac as ordered, draining well. Previous output is 250cc.
[2018-08-30] MEDS: HYDROcodone/Acetamin 10/325 tab ORAL PRN ×2 (10:27→17:05)
[2018-08-30 12:00] VITALS: BP 116/75
--- NOTE | 2018-08-30 12:05 | NUR ---
NURSE NOTES:WOUND CARE FOLLOW-UP NOTES:NPWT removed. 250ml serosanguineous exudate noted in canister. Dorsal wound beefy red ,edges flat and adherent to base of wound.(L)11cm x (W)4cm. Ventral wound beefy red,edges flat and adherent to base of wound. (L)12cm x (W)7cm. L forearm swelling resolving. Both wounds cleansed with Saline. Cavilon Skin Barrier applied around perimeter of each wound. Transparent drsg applied along borders of both dorsal and ventral wounds. Granulofoam packing cut to conform to size of each wound and covered . Trac pads placed over each wound and connected to Vac via Y- connector. NPWT resumed as ordered at 125mm/Hg to continuous suction.Abd pads placed under Trac tubings and L arm wrapped loosely with kerlix then zulema bandage and secured. Pt tolerated procedure well.Pt pending discharge to home and to continue NPWT . PT instructed of risks vs benefits on continuing NPWT. Pt advised NPWT is not be turned off for any reason and to notify his Home Health immediately if NPWT malfunctions or is off . Pt educated of risks for wound infection if NPWT is off for 2hours or more. Instructed to notify Home health of any increase pain at site of wound ,increase swelling or erythema.Pt verbalized understanding.
--- NOTE | 2018-08-30 13:42 | Infectious Diseases Prog Note ---
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)- now with ongoing significant swelling Plan: -Continue to monitor off prophylatic antibiotics -08/28 SP IV Vancomycin and Cefepime #8 -f/u cx -Monitor CBC/CMP, temperatures -wound care -ortho and plastic sx f/u- wound vac and eventual closure Subjective Allergies: Coded Allergies: No Known Allergies (Unverified , 08/20/18) Subjective afebrile no leukocytosis Objective Vital Signs Last 24 Hour Vital Signs Date Time Temp Pulse Resp B/P (MAP) Pulse Ox O2 Delivery O2 Flow Rate FiO2 08/30/18 09:00 Room Air 08/30/18 08:00 98.2 62 18 111/62 (78) 96 08/30/18 04:36 98.7 78 18 100/53 (69) 100 08/30/18 00:00 98.6 89 16 112/63 (79) 95 08/29/18 21:00 Room Air 08/29/18 20:00 98.3 98 17 123/71 (88) 97 08/29/18 16:00 98.5 87 18 112/55 (74) 94 Height (Feet): 5 Height (Inches): 11.00 Weight (Pounds): 178 Objective General Appearance: WD/WN HEENT: normocephalic, atraumatic Respiratory/Chest: chest wall non-tender, lungs clear Cardiovascular: normal peripheral pulses, normal rate Abdomen: soft, non tender Genitourinary: normal external genitalia Extremities: no cyanosis, no clubbing, other - resting left arm, L fingers are warm and he can move all of them Skin: no lesions 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 Current Medications Medications (Trade) Dose Ordered Sig/Diane Route PRN Reason Start Time Stop Time Status Last Admin Dose Admin Acetaminophen/ Hydrocodone Bitart ([place] 10/325) 1 tab Q3H PRN ORAL PAIN 1-5 08/29/18 09:14 09/05/18 09:13 08/30/18 10:27 Al Hydroxide/Mg Hydroxide (Mylanta) 30 ml Q6H PRN ORAL GERD/DYSPEPSIA 08/21/18 07:45 09/20/18 07:44 Diphenhydramine HCl (Benadryl) 25 mg Q6H PRN ORAL Itching 08/21/18 07:45 09/20/18 07:44 Docusate Sodium (Colace) 100 mg TWICE A DAY ORAL 08/21/18 09:00 09/20/18 08:59 08/30/18 09:03 Dronabinol (Marinol) 2.5 mg Q12H ORAL 08/23/18 18:00 09/22/18 17:59 08/30/18 05:39 Famotidine (Pepcid) 20 mg BID ORAL 08/21/18 09:00 09/20/18 08:59 08/30/18 09:03 Fluoxetine HCl (PROzac) 10 mg DAILY ORAL 08/27/18 09:00 09/26/18 08:59 08/30/18 09:04 Hydromorphone HCl (Dilaudid) 1 mg Q4H PRN IVP BREAKTHROUGH PAIN 6-10 08/29/18 09:31 09/05/18 09:30 Magnesium Citrate (Citrate Of Magnesia) 300 ml DAILYPRN PRN ORAL Severe constipation 08/21/18 14:00 09/20/18 13:59 08/29/18 06:54 Ondansetron HCl (Zofran) 4 mg Q4H PRN IVP Nausea & Vomiting 08/21/18 07:45 09/20/18 07:44 08/21/18 23:28 Oxycodone HCl (OxyCONTIN) 20 mg Q12HR ORAL 08/29/18 09:00 09/05/18 08:59 08/30/18 09:05 Pregabalin (Lyrica) 25 mg THREE TIMES A DAY ORAL 08/27/18 09:00 09/26/18 08:59 08/30/18 09:05 Sennosides (Senokot) 8.6 mg TWICE A DAY ORAL 08/22/18 18:00 09/22/18 08:59 08/30/18 09:03 Silver Sulfadiazine (Silvadene Cream 25gm) 1 applic TWICE A DAY TOPIC 08/21/18 18:00 09/20/18 17:59 08/29/18 18:03 Cehlsey Clay M.D. Aug 30, 2018 13:42
--- NOTE | 2018-08-30 15:34 | NUR ---
NURSE NOTES: Home health set up with [facility]. Appointment made for Wound care center on sunday09/02/18 at 11am. patient made aware. Patient has phone numbers for [facility] and [facility].
[2018-08-30 16:00] VITALS: BP 114/70
--- NOTE | 2018-08-30 18:00 | NUR ---
NURSE NOTES: Patient is discharged as ordered. Stable. Denies pain or SOB. No IV access. Patient was given thorough discharge instructions by RN. Patient verbalized understanding. Patient was able to fill all prescriptions. Patient has all medication. Patient has all belongings. Portable wound vac attached as ordered. Patient given thorough medication instructions and printouts, verbalized understanding. Patient has all wound vac and wound care supplies. Skin is clean, dry, and intact. Dressing clean, dry, and intact. Patient told RN that he did not want RN to notify family of discharge. Significant other is with patient. Patient is waiting for uber to arrive. Will continue to monitor while patient is in hospital.
[2018-08-30] MEDS ORDERED: Tubing IV Secondary IV ONE (18:57)
--- NOTE | 2018-08-30 18:57 | NUR ---
NURSE NOTES: Patient assisted into uber by PICTURE ENLARGER without incident. Patient has all belongings. Patient has portable wound vac. Patient is stable. Denies pain or SOB. Armband removed.
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
== END 2018-08-30 18:58 | disposition home health service (06) | DRG 561 ==
LOC: EDBD 23:02 → EMR 23:12 → 3E 23:20 → EDBEDREQ 23:46
DX: S52.92XE Unspecified fracture of left forearm, subsequent encounter for open fracture type I or II with routine healing (principal); S52.202E Unspecified fracture of shaft of left ulna, subsequent encounter for open fracture type I or II with routine healing; T79.A12D Traumatic compartment syndrome of left upper extremity, subsequent encounter; V28.4XXD Motorcycle driver injured in noncollision transport accident in traffic accident, subsequent encounter; G89.18 Other acute postprocedural pain; M79.89 Other specified soft tissue disorders; K59.03 Drug induced constipation; T40.2X5A Adverse effect of other opioids, initial encounter; T14.8XXD Other injury of unspecified body region, subsequent encounter
CPT/HCPCS: 36415; 80048; 80053; 80202; 83735; 84100; 85025; 85610; 85651; 85730; 86140; 87081; 93970; 96374; 96375; 96376; 99285; J2405

== ENCOUNTER 2018-09-02 10:59 | Outpatient (RCR) | payer OTHER ==
[~2018-09-02] VITALS: Ht 180.3 cm; Wt 79.4 kg
[2018-09-09] MEDS ORDERED: LYRICA75 M1 ORAL (06:23)
[2018-09-09] MEDS ORDERED: NORCO 10-325 T1 EACH ORAL (06:23)
[2018-09-09] MEDS ORDERED: OXYCODONE HCL20 M1 ORAL (06:23)
[2018-09-17] MEDS ORDERED: Lidocaine 4% Top Soln 50ml TOPIC ONE (17:00)
== END 2018-09-18 | disposition home or self-care (01) ==
LOC: WCC 10:59
DX: L98.493 Non-pressure chronic ulcer of skin of other sites with necrosis of muscle (principal); T79.A1 Traumatic compartment syndrome of upper extremity; S52.252 Displaced comminuted fracture of shaft of ulna, left arm; X58.XXXS Exposure to other specified factors, sequela
CPT/HCPCS: 11043; 11046; 97606

== ENCOUNTER 2018-09-09 05:41 | Day surgery (SDC) | payer OTHER ==
[~2018-09-09] VITALS: Ht 180.3 cm; Wt 81.6 kg
[2018-09-09] VITALS (11 sets, daily range): BP systolic 103–120; BP diastolic 57–76
--- NOTE | 2018-09-09 06:20 | NUR ---
IV LR WAS STARTED BY JOHN FLORES RN. NO S/S OF INFILTRATION.
[2018-09-09] MEDS ORDERED: LYRICA75 M1 ORAL (06:23)
[2018-09-09] MEDS ORDERED: OXYCODONE HCL20 M1 ORAL (06:23)
[2018-09-09] MEDS ORDERED: NORCO 10-325 T1 EACH ORAL (06:23)
[2018-09-09] MEDS ORDERED: LR 1000ml 1,000 ML IVLG SCH (06:32)
[2018-09-09] MEDS ORDERED: Dexamethasone 4mg/ml vial ONE (06:36)
[2018-09-09] MEDS ORDERED: Lidocaine 1% MPF 10mg/ml 5ml ONE (06:36)
--- NOTE | 2018-09-09 06:36 | Anethesia Preoperative Eval ---
Anesthesia Pre-op PMH/ROS General Date of Evaluation: Sep 09, 2018 Time of Evaluation: 07:06 Anesthesiologist: Bryan ASA Score: ASA 1 Mallampati Score Class I : Soft palate, uvula, fauces, pillars visible Class II: Soft palate, uvula, fauces visible Class III: Soft palate, base of uvula visible Class IV: Only hard plate visible Mallampati Classification: Class I Surgeon: Day Diagnosis: Left Am Wound Surgical Procedure: Debriement of Left Arm Wounds Anesthesia History: none Family History: no anesthesia problems Allergies: Coded Allergies: No Known Allergies (Unverified , 08/20/18) Medications: see eMAR Patient NPO?: Yes Anesthesia Pre-op Phys. Exam Physician Exam Last Vital Signs Date Time Temp Pulse Resp B/P (MAP) Pulse Ox O2 Delivery O2 Flow Rate FiO2 09/09/18 06:27 96.8 68 20 113/64 98 Room Air Constitutional: NAD Neurologic: CN 2-12 intact Cardiovascular: RRR Respiratory: CTA Gastrointestinal: S/NT/ND Airway Exam Mallampati Score: Class I MO: full ROM: full Teeth: intact Anesthesia Pre-op A/P Risk Assessment & Plan Assessment: ASA 1 Plan: GA, SED Status Change Before Surgery: No Pre-Antibiotics Dru Grams Ancef IV Given Within 1 Hr of Incision: Yes Time Given: 07:21 Santino Mayen MD Sep 09, 2018 06:36
[2018-09-09] MEDS ORDERED: fentaNYL 100 mcg/2 mL IV ONE (06:38)
[2018-09-09] MEDS ORDERED: Bacitracin 50000 Units Vial ONE (06:42)
[2018-09-09] MEDS ORDERED: Bupivacaine 0.25% Inj 30ml INJ ONE (06:42)
[2018-09-09] MEDS ORDERED: NeoSporin Gu Irrig 1ml Amp IRRIG ONE (06:42)
[2018-09-09] MEDS ORDERED: Lidocaine 1% Plain 30 ml INJ ONE (06:42)
[2018-09-09] MEDS ORDERED: Lidocaine 1% 10mg/ml/Epi 0.005mg/ml 30ml vial INJ ONE (06:42)
[2018-09-09] MEDS ORDERED: HYDROcodone/Acetamin 5/325 tab ORAL PRN (06:45)
[2018-09-09] MEDS ORDERED: Atropine Sulfate 0.4mg/ml inj IVP PRN (06:45)
[2018-09-09] MEDS ORDERED: fentaNYL 100 mcg/2 mL IV PRN (06:45)
[2018-09-09] MEDS ORDERED: Meperidine 50mg/ml Inj(FOR RIGORS ONLY) IVP PRN (06:45)
[2018-09-09] MEDS ORDERED: LORazepam Inj 2mg/ml 1ml IV PRN (06:45)
[2018-09-09] MEDS ORDERED: Metoclopramide 10mg/2ml Inj IVP PRN (06:45)
[2018-09-09] MEDS ORDERED: oxyCODONE HCL/Acetaminophen 5/325mg ORAL PRN (06:45)
[2018-09-09] MEDS ORDERED: Midazolam 2mg/2ml Inj IVP PRN (06:45)
[2018-09-09] MEDS ORDERED: DiphenhydrAMINE 50mg/ml Inj IVP PRN (06:45)
[2018-09-09] MEDS ORDERED: HYDROcodone/Acetamin 7.5/325 tab ORAL PRN (06:45)
[2018-09-09] MEDS ORDERED: Ketorolac 30mg Inj IV PRN ×2 (06:45)
[2018-09-09] MEDS ORDERED: Labetalol 5mg/ml 20ml vial IV PRN (06:45)
[2018-09-09] MEDS ORDERED: LR 1000ml ONE (07:00)
[2018-09-09] MEDS ORDERED: Propofol 200mg/20ml IV ONE (07:00)
--- NOTE | 2018-09-09 07:06 | Pre-Procedure Note/Attestation ---
Pre-Procedure Note/Attestation Complete Prior to Procedure Planned Procedure: left Procedure Narrative: Excisional debridement left forearm wounds, delayed primary closure, placement of wound vac Indications for Procedure Pre-Operative Diagnosis: Left forearm wounds s/p fasciotomies for compartment syndrome Attestation I attest that I discussed the nature of the procedure; its benefits; risks and complications; and alternatives (and the risks and benefits of such alternatives ), prior to the procedure, with the patient (or the patient's legal footwear sales representative). I attest that, if there was a reasonable possibility of needing a blood transfusion, the patient (or the patient's legal footwear sales representative) was given the [place] Department [employer] standardized written summary, pursuant to the [place] Blood Safety Act ([place] Health and Safety Code # 1645, as amended). I attest that I re-evaluated the patient just prior to the surgery and that there has been no change in the patient's H&P, except as documented below: Adrian Bernstein MD Sep 09, 2018 07:06
[2018-09-09] MEDS ORDERED: Acetaminophen (Non formulary) 100 ML IV ONE (07:15)
--- NOTE | 2018-09-09 07:37 | Immediate Post-Op Evaluation ---
Immediate Post-Op Evalulation Immediate Post-Op Evalulation Procedure: Debriement of Left Arm Wounds Date of Evaluation: Sep 09, 2018 Time of Evaluation: 09:37 IV Fluids: 1000 LR Blood Products: 0 Estimated Blood Loss: 20 Urinary Output: 0 Blood Pressure Systolic: 123 Blood Pressure Diastolic: 76 Pulse Rate: 75 Respiratory Rate: 16 O2 Sat by Pulse Oximetry: 100 Temperature (Fahrenheit): 97.5 Pain Score (1-10): 2 Nausea: No Vomiting: No Complications 0 Patient Status: awake, reacts, patent, none Hydration Status: adequate Dru Grams Ancef IV Given Within 1 Hr of Incision: Yes Time Given: 07:21 Santino Mayen MD Sep 09, 2018 07:37
--- NOTE | 2018-09-09 07:38 | 48 Hour Post Anesthesia Eval ---
Post Anesthesia Evaluation Procedure: Debriement of Left Arm Wounds Date of Evaluation: Sep 09, 2018 Time of Evaluation: 11:43 Blood Pressure Systolic: 118 0: 78 Pulse Rate: 72 Respiratory Rate: 18 Temperature (Fahrenheit): 98.2 O2 Sat by Pulse Oximetry: 100 Airway: patent Nausea: No Vomiting: No Pain Intensity: 2 Hydration Status: adequate Cardiopulmonary Status: Stable Mental Status/LOC: patient returned to baseline Follow-up Care/Observations: 0 Post-Anesthesia Complications: 0 Follow-up care needed: ready to discharge Santino Mayen MD Sep 09, 2018 07:38
[2018-09-09] MEDS ORDERED: Bacitracin Oint 15gm Tube TOPIC ONE (09:10)
[2018-09-09] MEDS: Hydromorphone 0.5mg/0.5ml inj IVP PRN ×2 (11:12→11:57)
--- NOTE | 2018-09-09 13:22 | Brief Operative Note ---
Immediate Post Operative Note Operative Note Pre-op Diagnosis: Left forearm wounds s/p fasciotomies for compartment syndrome Procedure: Sharp debridement of left forearm wounds down to muscle, Advancement flap closure of medial forearm wound Post-op Diagnosis: same as pre-op Surgeon: Day Anesthesiologist: Santino Mayen Anesthesia: general Specimen: none Complications: none Condition: stable Fluids: IVF Estimated Blood Loss: minimal Drains: none Implant(s) used?: No Adrian Bernstein MD Sep 09, 2018 13:22
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
== END 2018-09-09 12:40 | disposition home or self-care (01) ==
LOC: SUR 05:41
DX: T81.89XA Other complications of procedures, not elsewhere classified, initial encounter (principal); Y83.9 Surgical procedure, unspecified as the cause of abnormal reaction of the patient, or of later complication, without mention of misadventure at the time of the procedure
CPT/HCPCS: 97597; J0690; J1100; J1170; J2250; J2405; J2704; J3010; 94003; 94150

== ENCOUNTER 2018-09-30 11:00 | Outpatient (RCR) | payer OTHER ==
[~2018-09-30 11:00] MED LIST: LYRICA75 M1 ORAL; NORCO 10-325 T1 EACH ORAL; OXYCODONE HCL20 M1 ORAL
== END 2018-10-19 | disposition home or self-care (01) ==
LOC: WCC 11:00
DX: L98.493 Non-pressure chronic ulcer of skin of other sites with necrosis of muscle (principal); T79.A1 Traumatic compartment syndrome of upper extremity; S52.252 Displaced comminuted fracture of shaft of ulna, left arm; X58.XXXS Exposure to other specified factors, sequela
CPT/HCPCS: 11042; 15271; Q4106; Q4101

== ENCOUNTER 2018-10-22 08:30 | Outpatient (RCR) | payer OTHER | END 2018-11-18 | disposition home or self-care (01) | LOC: WCC 08:30 | DX: L98.492 Non-pressure chronic ulcer of skin of other sites with fat layer exposed (principal); T79.A1 Traumatic compartment syndrome of upper extremity; S52.252 Displaced comminuted fracture of shaft of ulna, left arm; X58.XXXS Exposure to other specified factors, sequela ==